=== PATIENT | female | born 2000 | race African-American/Black ===

== ENCOUNTER 2019-06-03 21:32 | Emergency (ER) | payer SELFPAY ==
--- OUTSIDE RECORDS SUMMARY | 2019-06-03 21:35 | XMS REPORT ---
:2000 [facility] Address [address] [place] [address] Dr. Beck [address] [place] [address] Care Team Providers Name Role Phone Unavailable Unavailable Unavailable Problems This patient has no known problems. Allergies, Adverse Reactions, Alerts This patient has no known allergies or adverse reactions. Medications This patient has no known medications.
--- OUTSIDE RECORDS SUMMARY | 2019-06-03 21:35 | XMS REPORT | Summary of Care ---
:2000 Author Organization [facility] - Health Address [address] [place] [id number] Care Team Providers Name Role Phone Christina Cam Primary Care Provider Reason for Referral Radiology Services (STAT) Status Reason Specialty Diagnoses / Referred By Referred To Procedures Contact Contact New Request Diagnostic Diagnoses Lower abdominal pain Gold, Priti Radiology Procedures XR KUB R, EMNP [address] [address] Radiology Services (STAT) Status Reason Specialty Diagnoses / Referred By Referred To Procedures Contact Contact New Request Diagnostic Diagnoses Lower abdominal pain Gold, Priti Radiology Procedures XR KUB R, EMNP [address] [address] Reason for Visit Reason Comments Abdominal Pain Sore Throat Auth/Cert Status Reason Specialty Diagnoses / Referred By Referred To Procedures Contact Contact [facility] [address] [place] [address] [place] [address] Encounter Details Date Type Department Care Team Description 06/03/2019 Emergency [facility]-Emergency Gold, Priti R, Lower abdominal pain Department EMNP (Primary Dx) [address] [place] [address] [address] [place] [address] [id number] [place] [address] Allergies No Known Allergiesdocumented as of this encounter (statuses as of 06/03/2019) Medications Medication Sig Dispensed Refills Start Date End Date Status dicyclomine 10 mg Take 1 capsule 20 capsule 0 06/03/2019 Active capsuleIndications: by mouth 4 Lower abdominal pain (four) times daily. ondansetron (ZOFRAN Take 1 tablet by 20 tablet 0 06/03/2019 Active ODT) 4 mg mouth every 8 disintegrating (eight) hours as tabletIndications: needed for Lower abdominal pain Nausea and Vomiting (N/V). documented as of this encounter (statuses as of 06/03/2019) Active Problems No known active problemsdocumented as of this encounter (statuses as of 2018) Social History Tobacco Use Types Packs/Day Years Used Date Never Assessed Sex Assigned at Date Recorded Not on file Job Start Date Occupation Industry Not on file Not on file Not on file Travel History Travel Start Travel End No recent travel history available. documented as of this encounter Last Filed Vital Signs Vital Sign Reading Time Taken Comments Blood Pressure 109/81 06/03/2019 1:00 PM CDT Pulse 61 06/03/2019 1:00 PM CDT Temperature 36.6 C (97.9 F) 06/03/2019 10:46 AM CDT Respiratory Rate 16 06/03/2019 1:00 PM CDT Oxygen Saturation 100% 06/03/2019 1:00 PM CDT Inhaled Oxygen Concentration - - Weight 48.5 kg (107 lb) 06/03/2019 10:46 AM CDT Height - - Body Mass Index - - documented in this encounter Discharge Instructions Priti Coppola EMNP - 06/03/2019NO LIFE-THREATENING FINDINGS ON TODAY'S EXAM. SPECIAL INSTRUCTIONS: 1. Avoid spicy foods for 5-7 days. 2. If you resume spicy foods and have abd pain, recommend following up with buttermaker helper 3. Recommend taking pepcid twice daily for 3-5 days 4. See attached information 5. Take medicines as prescribed FOLLOW-UP RECOMMENDATIONS: RECOMMEND FOLLOW-UP WITH A PRIMARY CARE PROVIDER OR SPECIALIST IN 2-5 DAYS, ESPECIALLY IF NO IMPROVEMENT IN SYMPTOMS. TO FOLLOW-UP WITHIN THE [facility], TRY THESE OPTIONS (CLINIC APPOINTMENTS AVAILABLE ON [id number] BASIS): 1. SCHEDULE AN APPOINTMENT ONLINE AT WWW.[facility] 2. OR CALL THE [facility] AT OR 3. OR CALL YOUR [facility] PHYSICIAN'S OFFICE DIRECTLY IF YOU ARE ALREADY AN ESTABLISHED [facility] PATIENT. OR, YOU MAY FOLLOW-UP WITH A PROVIDER OF YOUR CHOICE, SUCH : 1. A PHYSICIAN OF YOUR CHOICE 2. [facility], . LOCATIONS IN [facility] 3. [facility], [address] [place], [place]; [phone] RETURN TO ER FOR WORSENING OF SYMPTOMS. AttachmentsThe following attachments cannot be sent through Care Everywhere.Abdominal Pain, Adult (Sudanese)Abdominal Pain, Unknown Cause, (Female ) (Sudanese)Dicyclomine tablets or capsules (Sudanese)Ondansetron oral dissolving tablet (Sudanese)documented in this encounter Plan of Treatment Health Maintenance Due Date Last Done Comments MENINGOCOCCAL B VACCINES (1 of 2 - 2009 Risk Bexsero 2-dose series) VARICELLA VACCINES (1 of 2 - 13+ 2012 2-dose series) HPV VACCINES (1 - Female 3-dose 2014 series) CHLAMYDIA SCREENING 2015 DTaP,Tdap,and Td Vaccines (1 - 2018 Tdap) INFLUENZA VACCINE 06/30/2019 MENINGOCOCCAL VACCINE Aged Out No longer eligible based on patient's age to complete this topic PNEUMOCOCCAL 0-64 YEARS COMBINED Aged Out No longer eligible based on SERIES patient's age to complete this topic documented as of this encounter Procedures Procedure Name Priority Date/Time Associated Comments Diagnosis XR KUB STAT 06/03/2019 12:23 Lower abdominal Results for this PM CDT pain procedure are in the results section. CBC WITH DIFFERENTIAL STAT 06/03/2019 11:09 Lower abdominal Results for this AM CDT pain procedure are in the results section. CBC WITH DIFF STAT 06/03/2019 11:09 Lower abdominal Results for this AM CDT pain procedure are in the results section. COMP. METABOLIC PANEL STAT 06/03/2019 11:09 Lower abdominal Results for this (69604) AM CDT pain procedure are in the results section. LIPASE STAT 06/03/2019 11:09 Lower abdominal Results for this AM CDT pain procedure are in the results section. POCT TEST ALMITA 06/03/2019 10:51 Lower abdominal Results for this AM CDT pain procedure are in the results section. URINALYSIS STAT 06/03/2019 10:51 Lower abdominal Results for this AM CDT pain procedure are in the results section. NOTICE OF PRIVACY Routine 06/03/2019 10:36 PRACTICES AM CDT CONSENT/REFUSAL FOR Routine 06/03/2019 10:36 DIAGNOSIS AND AM CDT TREATMENT documented in this encounter Results XR KUB (06/03/2019 12:23 PM CDT) Specimen Impressions Performed At No definite radiographic abnormality PACS/VR/DOSE Narrative Performed At * * * * * * * * ORIGINAL REPORT * * * * * * * * PACS/VR/DOSE EXAM: KUB HISTORY: abd pain; TECHNIQUE:A KUB radiograph is obtained. COMPARISON: 2014 FINDINGS:The bowel gas pattern is nonobstructive. No radiopaque calculi or organomegaly is seen. No suspicious bony abnormality is noted. A tubular structure is seen superimposed over the midabdomen. Procedure Note [facility], Radiant Results Inft User - 06/03/2019 12:28 PM CDT * * * * * * * * ORIGINAL REPORT * * * * * * * * EXAM: KUB HISTORY: abd pain; TECHNIQUE:A KUB radiograph is obtained. COMPARISON: 2014 FINDINGS:The bowel gas pattern is nonobstructive. No radiopaque calculi or organomegaly is seen. No suspicious bony abnormality is noted. A tubular structure is seen superimposed over the midabdomen. IMPRESSION No definite radiographic abnormality Performing Organization Address City/State/Zipcode Phone Number PACS/VR/DOSE CBC WITH DIFFERENTIAL (06/03/2019 11:09 AM CDT) WBC 5.56 4.30 - 11.10 [facility] 10*3/L [facility] RBC 5.38 (H) 3.93 - 5.25 [facility] 10*6/L [facility] HGB 12.1 11.6 - 15.0 [facility] g/dL [facility] HCT 38.9 35.7 - 45.2 % [facility] MCV 72.3 (L) 80.6 - 95.5 fL [facility] MCH 22.5 (L) 25.9 - 32.8 pg [facility] MCHC 31.1 (L) 31.6 - 35.1 [facility] g/dL [facility] RDW-SD 38.0 (L) 39.0 - 49.9 fL [facility] RDW-CV 14.6 12.0 - 15.5 % [facility] PLT 273 166 - 358 [facility] 10*3/L [facility] MPV 9.0 (L) 9.5 - 12.9 fL [facility] NRBC/100 WBC 0.0 0.0 - 10.0 /100 [facility] WBCs [facility] NRBC x10^3 <0.01 10*3/L [facility] GRAN MAT (NEUT) % 48.4 % [facility] IMM GRAN % 0.00 % [facility] LYMPH % 31.5 % [facility] MONO % 16.5 % [facility] EOS % 3.2 % [facility] BASO % 0.4 % [facility] GRAN MAT x10^3(ANC) 2.69 1.88 - 7.09 [facility] 10*3/uL [facility] IMM GRAN x10^3 <0.03 0.00 - 0.06 [facility] 10*3/uL [facility] LYMPH x10^3 1.75 1.32 - 3.29 [facility] 10*3/uL [facility] MONO x10^3 0.92 0.33 - 0.92 [facility] 10*3/uL [facility]ITAL [facility] EOS x10^3 0.18 0.03 - 0.39 [facility] 10*3/uL [facility] BASO x10^3 <0.03 0.01 - 0.07 [facility] 10*3/uL [facility] Specimen Blood - ARM, RIGHT Performing Organization Address [facility]ode Phone Number [facility] CLIA: [id number], [address] [place] [address] LIPASE (06/03/2019 11:09 AM CDT) LIPASE 54 0 - 220 U/L [facility] Specimen Blood - ARM, RIGHT Performing Organization Address City/[facility] Cent[facility]ode Phone Number [facility] CLIA: [id number], [address] [place] [address] COMP. METABOLIC PANEL (28006) (06/03/2019 11:09 AM CDT) NA 143 135 - 145 mmol/L [facility] K 3.6 3.5 - 5.0 mmol/L [facility] CL 107 98 - 108 mmol/L [facility] CO2 TOTAL 28 23 - 31 mmol/L [facility] AGAP 8 2 - 16 [facility] BUN 8 7 - 23 mg/dL [facility] GLUCOSE 90 70 - 110 mg/dL [facility] CREATININE 0.62 0.50 - 1.04 [facility] mg/dL [facility]PITAL [facility] TOTAL BILI 0.2 0.1 - 1.1 mg/dL [facility] CALCIUM 9.5 8.6 - 10.6 mg/dL [facility] T PROTEIN 7.6 6.3 - 8.2 g/dL [facility] ALBUMIN 4.4 3.5 - 5.0 g/dL [facility] ALK PHOS 75 34 - 122 U/L [facility] ALT(SGPT) 21 9 - 51 U/L [facility] AST(SGOT) 26 13 - 40 U/L [facility] eGFR Calculation 124.0 mL/min/1.73m2 [facility] (Non-) [facility] eGFR Calculation 150.3 mL/min/1.73m2 [facility] () [facility] Specimen Blood - ARM, RIGHT Narrative Performed At Association of Glomerular Filtration Rate (GFR) [facility] and Staging of Kidney Disease* + + +- + | GFR (mL/min/1.73 m2)| With Kidney Damage|Without Kidney Damage + + +- + |>90| Stage one| Normal + + +- + |60-89|S tage two| Decreased GFR + + +- + |30-59|S tage three| Stage three + + +- + |15-29|S tage four | Stage four + + +- + |<15 (or dialysis)|Stage five | Stage five + + +- + *Each stage assumes the associated GFR level has been in effect for at least three months.Stages 1 to 5, with or without kidney disease, indicate chronic kidney disease. Notes: Determination of stages one and two (with eGFR >59mL/min/1.73 m2) requires estimation of kidney damage for at least three months as defined by structural or functional abnormalities of the kidney, manifested by either: Pathological abnormalities or Markers of kidney damage (including abnormalities in the composition of the blood or urine or abnormalities in imaging tests). Performing Organization Address [facility] Centercode Phone Number [facility] CLIA: [id number], [address] [place] [address] POCT TEST (06/03/2019 10:51 AM CDT) POCT PREG negative On board controls acceptable present with C Line POCT PREG LOT # [id number] POCT PREG TEST DATE 10/29/2020 Specimen Urine - URINE, CLEAN CATCH URINALYSIS (06/03/2019 10:51 AM CDT) APPEARANCE Clear Clear [facility] COLOR Pale Yellow (A) Yellow [facility] PH 7.5 4.8 - 8.0 [facility] SP GRAVITY 1.010 1.003 - 1.030 [facility] GLU U QUAL Negative Negative [facility] BLOOD Negative Negative [facility] KETONES Negative Negative [facility] PROTEIN Negative Negative [facility] UROBILIN 0.2 mg/dL 0-1.0 mg/dL [facility] BILIRUBIN Negative Negative [facility] NITRITE Negative Negative [facility] LEUK ELAINE Negative Negative [facility] RBC/HPF 0 0 - 3 HPF [facility] WBC/HPF 1 0 - 5 HPF [facility] BACTERIA Few (A) Negative [facility] SQ EPITH 2 HPF [facility] Specimen Urine - URINE, CLEAN CATCH Performing Organization Address City/[facility]/Zipcode Phone Number [facility] CLIA: [id number], [address] [place] [address] documented in this encounter Visit Diagnoses Diagnosis Lower abdominal pain - Primary Abdominal pain, other specified site documented in this encounter Administered Medications Medication Order MAR Action Action Date Dose Rate Site acetaminophen (TYLENOL) tablet Given 06/03/2019 12:24 PM CDT 650 mg 650 mg 650 mg, Oral, ONCE, 1 dose, 06/03/19 at 1330, ALMITA ketorolac (TORADOL) injection 15 mg Given 06/03/2019 11:46 AM CDT 15 mg 15 mg, Slow IV Push, ONCE, 1 dose, Mon06/03/19 at 1245, Routine, cannon 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
[2019-06-03 23:33] LABS: Absolute Lymphocytes (CBC) 0.8 K/uL (0.7-4.9); Basophils % 0.1 % (0-1.3); Hematocrit 36.4 % (36.0-45.0); Lymphocytes % 10.7 % (15.3-44.8); MPV 7.2 fL (7.6-11.3); RBC Red Blood Cell Count 5.15 M/uL (3.86-4.86)
[2019-06-03] MEDS ORDERED: ONDANSETRON 4 MG/2 ML VIAL ONE (23:45)
[2019-06-03] MEDS ORDERED: FAMOTIDINE 20 MG/2 ML VIAL IV ONE (23:45)
[2019-06-03 23:50] LABS: ALT/SGPT 22 U/L (12-78); AST/SGOT 18 U/L (15-37); Albumin 3.8 g/dL (3.4-5.0); Alkaline Phosphatase 72 U/L (45-117); BUN Blood Urea Nitrogen 6 mg/dL (7-18); Bicarbonate 28 mmol/L (21-32); Bilirubin Direct < 0.1 mg/dL (0-0.2); Bilirubin Total 0.3 mg/dL (0.2-1.0); Glucose Level 94 mg/dL (74-106); Lipase 60 U/L (73-393); Potassium 3.7 mmol/L (3.5-5.1); Protein, Total 7.4 g/dL (6.4-8.2); Sodium Level 141 mmol/L (136-145)
[2019-06-03] MEDS ORDERED: KETOROLAC 30 MG/ML INJ ONE (23:53)
[2019-06-03] MEDS ORDERED: PROMETHAZINE 25 MG/ML VIAL ONE (23:58)
[2019-06-04 00:46] LABS: Urine Blood NEGATIVE (NEG); Urine Glucose NEGATIVE (NEG); Urine Protein 1+ (NEG); Urine pH 8.5 (5.0-7.0)
--- NOTE | 2019-06-04 01:23 | EDPHYS ---
Physician Documentation [facility] Name: Tanvi Morris Age: 18 yrs Sex: Female : 2000 Arrival Date: 06/03/2019 Time: 21:36 Bed Treatment Private MD: ED Physician Norbert Daley HPI: 06/04 00:42 This 18 yrs old Unknown Female presents to ER via Ambulatory with complaints of kb Abdominal Pain, Vomiting. 00:42 The patient presents with abdominal pain in the upper abdomen. Onset: The kb symptoms/episode began/occurred last night. The symptoms do not radiate. Associated signs and symptoms: Pertinent positives: nausea and vomiting. The symptoms are described as constant. Modifying factors: The symptoms are alleviated by nothing, the symptoms are aggravated by nothing. Severity of pain: At its worst the pain was moderate in the emergency department the pain is unchanged. The patient has not experienced similar symptoms in the past. The patient has been recently seen by a physician: the ER physician, out of Town. Pt reports upper abd pain, nausea and vomiting that started last night. Was seen at [place] and given bentyl, but she just vomits it up. . 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 - Social history:: Smoking status: Patient/guardian denies using tobacco. - Ebola Screening: : No symptoms or risks identified at this time. ROS: 06/04 00:41 Constitutional: Negative for fever, chills, and weight loss, ENT: Negative for injury, kb pain, and discharge, Neck: Negative for injury, pain, and swelling, Cardiovascular: Negative for chest pain, palpitations, and edema, Respiratory: Negative for shortness of breath, cough, wheezing, and pleuritic chest pain, Back: Negative for injury and pain, : Negative for injury, bleeding, discharge, and swelling, MS/Extremity: Negative for injury and deformity, Skin: Negative for injury, rash, and discoloration, Neuro: Negative for headache, weakness, numbness, tingling, and seizure. Abdomen/GI: Positive for abdominal pain, nausea and vomiting, Negative for diarrhea, constipation, abdominal cramps, abdominal distension, anorexia. Exam: 00:41 Constitutional: This is a well developed, well nourished patient who is awake, alert, kb and in no acute distress. Head/Face: Normocephalic, atraumatic. Eyes: Pupils equal round and reactive to light, extra-ocular motions intact. Lids and lashes normal. Conjunctiva and sclera are non-icteric and not injected. Cornea within normal limits. Periorbital areas with no swelling, redness, or edema. ENT: Nares patent. No nasal discharge, no septal abnormalities noted. Tympanic membranes are normal and external auditory canals are clear. Oropharynx with no redness, swelling, or masses, exudates, or evidence of obstruction, uvula midline. Mucous membranes moist. Neck: Trachea midline, no thyromegaly or masses palpated, and no cervical lymphadenopathy. Supple, full range of motion without nuchal rigidity, or vertebral point tenderness. No Meningismus. Chest/axilla: Normal chest wall appearance and motion. Nontender with no deformity. No lesions are appreciated. Cardiovascular: Regular rate and rhythm with a normal S1 and S2. No gallops, murmurs, or rubs. Normal PMI, no JVD. No pulse deficits. Respiratory: Lungs have equal breath sounds bilaterally, clear to auscultation and percussion. No rales, rhonchi or wheezes noted. No increased work of breathing, no retractions or nasal flaring. Back: No spinal tenderness. No costovertebral tenderness. Full range of motion. Skin: Warm, dry with normal turgor. Normal color with no rashes, no lesions, and no evidence of cellulitis. MS/ Extremity: Pulses equal, no cyanosis. Neurovascular intact. Full, normal range of motion. Neuro: Awake and alert, GCS 15, oriented to person, place, time, and situation. Cranial nerves II-XII grossly intact. Motor strength 5/5 in all extremities. Sensory grossly intact. Cerebellar exam normal. Normal gait. 00:41 Abdomen/GI: Inspection: abdomen appears normal, Bowel sounds: normal, in all quadrants, Palpation: soft, in all quadrants, mild abdominal tenderness, in the right upper quadrant and left upper quadrant. Vital Signs: 08/05 22:00 BP 134 / 91; Pulse 78; Resp 20; Temp 98.8; Pulse Ox 98% on R/A; Weight 52.16 kg (R); ak1 Height 5 ft. 4 in. (162.56 cm); Pain 10/10; 06/04 00:53 BP 109 / 65; Pulse 72; Resp 20; Temp 98.5(O); Pulse Ox 100% on R/A; mw2 01:36 BP 94 / 53; Pulse 73; Resp 18; Temp 98.5(O); Pulse Ox 100% on R/A; mw2 06/03 22:00 Body Mass Index 19.74 (52.16 kg, 162.56 cm) ak1 MDM: 06/03 22:14 Patient medically screened. kb 06/04 00:41 Data reviewed: vital signs, nurses notes. Data interpreted: Pulse oximetry: on room air kb is 98 %. Interpretation: normal. 01:22 Counseling: I had a detailed discussion with the patient and/or guardian regarding: the kb historical points, exam findings, and any diagnostic results supporting the discharge/admit diagnosis, lab results, the need for outpatient follow up, a family practitioner, a mill machinist, to return to the emergency department if symptoms worsen or persist or if there are any questions or concerns that arise at home. 06/03 23:06 Order name: Basic Metabolic Panel; Complete Time: 23:55 kb 06/03 23:06 Order name: CBC with Diff; Complete Time: 23:35 kb 06/03 23:06 Order name: Hepatic Function; Complete Time: 23:55 kb 06/03 23:06 Order name: Lipase; Complete Time: 23:55 kb 06/04 00:08 Order name: Urine Dipstick--Ancillary (enter results); Complete Time: 00:46 ar5 06/04 00:08 Order name: Urine --Ancillary (enter results); Complete Time: 00:46 ar5 06/03 23:06 Order name: IV Saline Lock; Complete Time: 23:18 kb 06/03 23:06 Order name: Labs collected and sent; Complete Time: 23:18 kb 06/03 23:06 Order name: Urine Dipstick-Ancillary (obtain specimen); Complete Time: 00:03 kb 06/04 00:12 Order name: Travis Screen Profile; Complete Time: 01:20 kb Administered Medications: 06/03 23:55 Drug: TORadol - Ketorolac 15 mg Route: IVP; Site: left antecubital; bb 06/04 00:30 Follow up: Response: No adverse reaction; Pain is decreased bb 06/03 23:55 Drug: Pepcid 20 mg Route: IVP; Site: left antecubital; bb 06/04 00:30 Follow up: Response: No adverse reaction bb 06/03 23:55 Drug: Zofran 4 mg Route: IVP; Site: left antecubital; bb 06/04 00:30 Follow up: Response: No adverse reaction; No change in condition bb 06/03 23:56 Drug: Phenergan 12.5 mg Route: IVP; Site: left antecubital; bb 06/04 00:30 Follow up: Response: Marked relief of symptoms bb Disposition: 07:12 Co-signature as Attending Physician, Norbert Daley MD Available for consultation at ps1 all times. . Disposition: 06/04/19 01:23 Discharged to Home. Impression: Upper abdominal pain, unspecified, Nausea and vomiting. - Condition is Stable. - Discharge Instructions: Nausea and Vomiting, Adult, [id number], Abdominal Pain, Adult, [id number]. - Prescriptions for Zofran ODT 4 mg Oral tablet,disintegrating - place 1 tablet by TRANSLINGUAL route every 6 hours As needed; 20 tablet. - Medication Reconciliation Form, Thank You Letter, Antibiotic Education, Prescription Opioid Use, Work release form, Family Work Release form. - Follow up: Emergency Department; When: As needed; Reason: Worsening of condition. Follow up: Private Physician; When: 2 - 3 days; Reason: Recheck today's complaints, Continuance of care, Re-evaluation by your physician. Signatures: Dispatcher [employer] EDMS Kia Fernández FNP-C FNP-Ckb Ballard, Brenda RN RN bb Cynthia Concepcion RN RN ak1 Norbert Daley MD MD ps1 Corrections: (The following items were deleted from the chart) 01:39 01:23 06/04/2019 01:23 Discharged to Home. Impression: Upper abdominal pain, bb unspecified; Nausea and vomiting. Condition is Stable. Forms are Medication Reconciliation Form, Thank You Letter, Antibiotic Education, Prescription Opioid Use. Follow up: Emergency Department; When: As needed; Reason: Worsening of condition. Follow up: Private Physician; When: 2 - 3 days; Reason: Recheck today's complaints, Continuance of care, Re-evaluation by your physician. kb
--- NOTE | 2019-06-04 01:23 | ER ---
Nurse's Notes [facility] Name: Tanvi Morris Age: 18 yrs Sex: Female : 2000 Arrival Date: 06/03/2019 Time: 21:36 Bed Treatment Private MD: Diagnosis: Upper abdominal pain, unspecified;Nausea and vomiting Presentation: 06/03 21:58 Presenting complaint: Patient states: generalized abd pain started a midnight last ak1 night. pt seen at [facility] [[email or web address]] given Bentyl. pt continues to vomit and have increased pain. pt mother stated pt had xray of the abd, UPT, lab work and a pelvic exam at [facility] [[email or web address] Transition of care: patient was not received from another setting of care. Onset of symptoms is unknown. Risk Assessment: Do you want to hurt yourself or someone else? Patient reports no desire to harm self or others. Initial Sepsis Screen: Does the patient meet any 2 criteria? No. Patient's initial sepsis screen is negative. Does the patient have a suspected source of infection? No. Patient's initial sepsis screen is negative. Care prior to arrival: None. 21:58 Method Of Arrival: Ambulatory ak1 21:58 Acuity: ELPIDIO 3 ak1 Triage Assessment: 22:00 General: Appears uncomfortable, Behavior is crying. 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 - Social history:: Smoking status: Patient/guardian denies using tobacco. - Ebola Screening: : No symptoms or risks identified at this time. Screenin/06 00:06 Abuse screen: Denies threats or abuse. Nutritional screening: No deficits noted. bb Tuberculosis screening: No symptoms or risk factors identified. Fall Risk None identified. Assessment: 06/03 23:15 General: Appears uncomfortable, slender, Behavior is calm, cooperative. Pain: Complains bb of pain in abdomen Pain currently is 9 out of 10 on a pain scale. Neuro: Level of Consciousness is awake, alert, obeys commands, Oriented to person, place, time, situation. Cardiovascular: Heart tones S1 S2 present Capillary refill < 3 seconds Patient's skin is warm and dry. Respiratory: Airway is patent Respiratory effort is even, unlabored, Respiratory pattern is regular. GI: Abdomen is flat, Bowel sounds present X 4 quads. Abd is soft X 4 quads Abdomen is tender to palpation in periumbilical area Reports constipation, vomiting. Derm: Skin is dry, Skin is normal, Skin temperature is warm. Musculoskeletal: Circulation, motion, and sensation intact. 23:45 Reassessment: pt actively vomiting Allison Fernández RESIDENTIAL LEASING AGENT notified pt medicated see DEC. bb 06/04 00:30 Reassessment: Patient is alert, oriented x 3, equal unlabored respirations, skin bb warm/dry/pink. Patient states feeling better. 01:38 Reassessment: Patient and/or family updated on plan of care and expected duration. Pain bb level reassessed. pt and family verbalized understanding of and agrees to plan of care discharge instructions given pt ambulated with steady gait to exit accompanied by family. Vital Signs: 06/03 22:00 BP 134 / 91; Pulse 78; Resp 20; Temp 98.8; Pulse Ox 98% on R/A; Weight 52.16 kg (R); ak1 Height 5 ft. 4 in. (162.56 cm); Pain 10/10; 06/04 00:53 BP 109 / 65; Pulse 72; Resp 20; Temp 98.5(O); Pulse Ox 100% on R/A; mw2 01:36 BP 94 / 53; Pulse 73; Resp 18; Temp 98.5(O); Pulse Ox 100% on R/A; mw2 06/03 22:00 Body Mass Index 19.74 (52.16 kg, 162.56 cm) ak1 ED Course: 06/03 21:36 Patient arrived in ED. ag3 22:00 Triage completed. ak1 22:00 Arm band placed on Patient placed in waiting room, Patient notified of wait time. ak1 22:11 Kia Fernández FNP-C is PHCP. kb 22:11 Norbert Daley MD is Attending Physician. kb 23:17 Cassidy Hdz RN is Primary Nurse. bb 23:25 Inserted saline lock: 20 gauge in left antecubital area, using aseptic technique. Blood mw2 collected. 23:30 Patient has correct armband on for positive identification. Bed in low position. Call bb light in reach. Adult w/ patient. 06/04 01:39 No provider procedures requiring assistance completed. IV discontinued, intact, bb bleeding controlled, No redness/swelling at site. Pressure dressing applied. Administered Medications: 06/03 23:55 Drug: TORadol - Ketorolac 15 mg Route: IVP; Site: left antecubital; bb 06/04 00:30 Follow up: Response: No adverse reaction; Pain is decreased bb 06/03 23:55 Drug: Pepcid 20 mg Route: IVP; Site: left antecubital; bb 06/04 00:30 Follow up: Response: No adverse reaction bb 06/03 23:55 Drug: Zofran 4 mg Route: IVP; Site: left antecubital; bb 06/04 00:30 Follow up: Response: No adverse reaction; No change in condition bb 06/03 23:56 Drug: Phenergan 12.5 mg Route: IVP; Site: left antecubital; bb 06/04 00:30 Follow up: Response: Marked relief of symptoms bb Outcome: 01:23 Discharge ordered by . kb 01:39 Discharged to home ambulatory, with family. bb 01:39 Condition: stable 01:39 Discharge instructions given to patient, family, Instructed on discharge instructions, follow up and referral plans. medication usage, Demonstrated understanding of instructions, follow-up care, medications, Prescriptions given X 1. 01:39 Patient left the ED. bb Signatures: Kia Fernández, MARAL MÉNDEZ-Cassidy Erwin RN RN bb Cynthia Concepcion RN RN ak1 Mona Collier mw2 Cassie Martin ag3
== END 2019-06-04 01:39 | disposition home or self-care (01) ==
LOC: ER 21:32
DX: R10.10 Upper abdominal pain, unspecified (principal); R11.2 Nausea with vomiting, unspecified
CPT/HCPCS: 36415; 80048; 80076; 81003; 81025; 83690; 85025; 86308; 96374; 96375; 99284; J2405; J2550

== ENCOUNTER 2021-08-08 18:33 | Emergency (ER) | payer SELFPAY ==
--- NOTE | 2021-08-08 19:35 | EDPHYS ---
Physician Documentation [facility] Name: Paty Morris Age: 20 yrs Sex: Female : 2000 Arrival Date: 08/08/2021 Time: 18:36 Bed 18 Private MD: ED Physician Gonzales Monahan HPI: 08/08 19:29 This 20 yrs old Black Female presents to ER via Ambulatory with complaints of Tongue cp Problem. 19:29 The patient presents with pain. The problem is located in the tongue. cp 19:29 Onset: The symptoms/episode began/occurred 2 day(s) ago. cp 19:29 Duration: The symptoms are continuous, and are unchanged since they started. Associated cp signs and symptoms: Pertinent positives: pain, Pertinent negatives: dysphagia, fever, inability to eat, sore throat. Severity of symptoms: in the emergency department the symptoms are unchanged, despite home interventions. 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 - Social history:: Smoking status: Patient denies any tobacco usage or history of. ROS: 19:30 ENT: Positive for tongue pain. cp 19:30 Constitutional: Negative for fever, poor PO intake. cp 19:30 Respiratory: Negative for cough, shortness of breath, wheezing. 19:30 Abdomen/GI: Negative for abdominal pain, nausea, vomiting, and diarrhea. 19:30 Skin: Negative for rash. 19:30 All other systems are negative. Exam: 19:33 Constitutional: The patient appears in no acute distress, alert, awake, non-toxic, well cp developed, well nourished. 19:33 Head/Face: Normocephalic, atraumatic. cp 19:33 ENT: External ear(s): are unremarkable, Nose: is normal, Mouth: Lips: moist, Oral mucosa: pink and intact, moist, Tongue: displays stomatitis, no swelling, no erythema noted, Posterior pharynx: Airway: no evidence of obstruction, patent, Tonsils: are normal in appearance, Uvula: midline, erythema, is not appreciated, exudate, is not appreciated. 19:33 Neck: ROM/movement: is normal, is supple, without pain, no range of motions limitations, Lymph nodes: no appreciated lymphadenopathy. 19:33 Cardiovascular: Rate: normal. 19:33 Respiratory: the patient does not display signs of respiratory distress, Respirations: normal. 19:33 Skin: no rash present. Vital Signs: 18:51 BP 126 / 87; Pulse 78; Resp 14; Temp 98.6; Pulse Ox 100% ; Weight 47.63 kg; Height 5 vg1 ft. 5 in. (165.10 cm); Pain 4/10; 18:51 Body Mass Index 17.47 (47.63 kg, 165.10 cm) vg1 MDM: 19:14 Patient medically screened. [facility] 19:30 Differential diagnosis: aphthous ulcers, acute necrotizing ulcerative gingivitis, cp gingivostomatitis. 19:35 Data reviewed: vital signs, nurses notes. 19:35 Counseling: I had a detailed discussion with the patient and/or guardian regarding: the cp historical points, exam findings, and any diagnostic results supporting the discharge/admit diagnosis, to return to the emergency department if symptoms worsen or persist or if there are any questions or concerns that arise at home. Administered Medications: No medications were administered Disposition: 19:40 Chart complete. 08/09 07:02 Co-signature as Attending Physician, Gonzales Monahan MD I agree with the assessment and main [facility] plan of care. Disposition Summary: 08/08/21 19:35 Discharge Ordered Location: Home cp Problem: new cp Symptoms: are unchanged cp Condition: Stable cp Diagnosis - Other forms of stomatitis - oral cp Followup: cp - With: Private Physician - When: 2 - 3 days - Reason: Worsening of condition Discharge Instructions: - Discharge Summary Sheet cp - Stomatitis cp Forms: - Medication Reconciliation Form cp - Thank You Letter cp - Antibiotic Education cp - Prescription Opioid Use cp Prescriptions: - Lidocaine Viscous - take 5 milliliter by ORAL route every 4-6 hours As needed; 1 bottle; Refills: cp 0, Product Selection Permitted Signatures: Gonzales Monahan MD MD cha Page, Corey, PA PA cp Garcia, Victoria, RN RN vg1
--- NOTE | 2021-08-08 19:35 | ER ---
Nurse's Notes [facility] Name: Paty Morris Age: 20 yrs Sex: Female : 2000 Arrival Date: 08/08/2021 Time: 18:36 Bed 18 Private MD: Diagnosis: Other forms of stomatitis-oral Presentation: 08/08 18:51 Chief complaint: Patient states: About two days ago pt states has a cut on tongue and vg1 its difficult to eat or drink anything. Pt is concerned that it might be infected. Coronavirus screen: Vaccine status: Patient reports being unvaccinated. Ebola Screen: Patient negative for fever greater than or equal to 101.5 degrees Fahrenheit, and additional compatible Ebola Virus Disease symptoms. Initial Sepsis Screen: Does the patient meet any 2 criteria? No. Patient's initial sepsis screen is negative. Does the patient have a suspected source of infection? No. Patient's initial sepsis screen is negative. Risk Assessment: Do you want to hurt yourself or someone else? Patient reports no desire to harm self or others. Onset of symptoms was August 06, 2021. 18:51 Method Of Arrival: Ambulatory vg1 18:51 Acuity: ELPIDIO 4 vg1 Triage Assessment: 18:56 General: Appears in no apparent distress. comfortable, Behavior is calm, cooperative. vg1 Pain: Complains of pain in tongue. 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 - Social history:: Smoking status: Patient denies any tobacco usage or history of. Screenin:10 Abuse screen: Denies threats or abuse. Denies injuries from another. Nutritional dc2 screening: No deficits noted. Nutritional screening: No deficits noted. Tuberculosis screening: No symptoms or risk factors identified. Never had TB. Fall Risk None identified. No fall in past 12 months (0 pts). Assessment: 19:10 General: Appears in no apparent distress. comfortable, slender, well groomed, well dc2 developed, Behavior is calm, cooperative. Pain: Denies pain. Neuro: No deficits noted. Neuro: No deficits noted. Respiratory: No deficits noted. GI: No signs and/or symptoms were reported involving the gastrointestinal system. EENT: tiny superficial canker sore in middle of tongue. Denies pain at this time. . Derm: No deficits noted. Vital Signs: 18:51 BP 126 / 87; Pulse 78; Resp 14; Temp 98.6; Pulse Ox 100% ; Weight 47.63 kg; Height 5 vg1 ft. 5 in. (165.10 cm); Pain 4/10; 18:51 Body Mass Index 17.47 (47.63 kg, 165.10 cm) vg1 ED Course: 18:36 Patient arrived in ED. mr 18:56 Triage completed. vg1 18:56 Arm band placed on. vg1 19:10 Patient has correct armband on for positive identification. Bed in low position. Call dc2 light in reach. Side rails up X 1. 19:14 Gonzales De Luna PA is PHCP. cp 19:14 Gonzales Monahan MD is Attending Physician. cp 19:40 No provider procedures requiring assistance completed. dc2 19:40 Patient did not have IV access during this emergency room visit. dc2 19:48 Marielos Doran, RN is Primary Nurse. dc2 Administered Medications: No medications were administered Outcome: 19:35 Discharge ordered by . cp 19:50 Discharged to home ambulatory. dc2 19:50 Condition: good 19:50 Discharge instructions given to patient, Instructed on discharge instructions, follow dc2 up and referral plans. Demonstrated understanding of instructions, medications. 19:57 Patient left the ED. dc2 Signatures: Yfn Bethany mr Gonzales De Luna PA PA Belinda Dinero, RN RN vg1 Marielos Doran RN RN dc2
[2021-08-08 20:05] VITALS: BP 126/87; TEMP 98.6; O2SAT 100
== END 2021-08-08 19:57 | disposition home or self-care (01) ==
LOC: ER 18:33
DX: K12.1 Other forms of stomatitis (principal)
CPT/HCPCS: 99281

== ENCOUNTER 2021-10-19 07:24 | Emergency (ER) | payer SELFPAY ==
--- OUTSIDE RECORDS SUMMARY | 2021-10-19 07:27 | XMS REPORT | Continuity of Care Document ---
:2000 Author Organization [facility] t Address [address] [place] [address] Care Team Providers Name Role Phone Doctor Unassigned, Name Attending Clinician Unavailable Pob1, Care Clinic Attending Clinician Unavailable Caridad Curran Attending Clinician Caridad MORAN Attending Clinician Unavailable Nurse, Nikolai Pob I Attending Clinician Unavailable Evette RUIZ R Attending Clinician GOLD, R Attending Clinician Unavailable GOLD, R Admitting Clinician Unavailable Payers Payer Name Policy Type Policy Number Effective Date Expiration Date S ource Problems Condition Condition Condition Status Onset Resolution Last Treating Co mments Source Name Details Category Date Date Treatment Clinician Date No known No known Disease Unive rs active active ity of problems problems [facility] Allergies, Adverse Reactions, Alerts Allergy Allergy Status Severity Reaction(s) Onset Inactive Treating Comm ents Source Name Type Date Date Clinician NO KNOWN Drug Active Univers ALLERGIE Class ity of S [facility] Social History Social Habit Start Date Stop Date Quantity Comments Source Sex Assigned At Uni versity [facility] Smoking Status Start Date Stop Date Source Never smoker [facility] Unknown if ever smoked [facility] y [facility] Medications Ordered Filled Start Stop Current Ordering Indication Dosage Frequency Signature Comments Components Source Medication Medication Date Date Medication? Clinician (SIG) Name Name ondansetron 2019- No 4mg 4 mg, Slow Univers (ZOFRAN 06-03 IV Push, ity of (PF)) 18:30: 17:24 ONCE, 1 [place] injection 4 00 :00 dose, Mon Med ical mg 06/03/19 at Branch 1330, ALMITA acetaminoph 2019- No 650mg 650 mg, U nivers en 06-03 Oral, ity of (TYLENOL) 18:30: 17:24 ONCE, 1 [place] tablet 650 [place] :00 dose, Mon Medi david mg 06/03/19 at Branch 1330, ALMITA ketorolac 2019- No 15mg 15 mg, Unive rs (TORADOL) 06-03 08-05 Slow IV ity of injection 17:45: 16:46 Push, [place] 15 mg 00 :00 ONCE, 1 Medical dose, [facility] 06/03/19 at 1245, Routine
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 06/03/19 at 1215, STAT dicyclomine 2018- Yes [id number] 10mg Take 1 Univers 10 mg 8-05 capsule by ity of capsule 00:00: mouth 4 00 (four) Medical times Branch daily. ondansetron 2019- Yes [id number] 4mg Take 1 Univers (ZOFRAN 8-05 tablet by ity of ODT) 4 mg 00:00: mouth [place] disintegrat 00 every 8 Medic al ing tablet (eight) Branch hours as needed for Nausea and Vomiting (N/V). dicyclomine 2019-0 Yes [id number] 10mg Take 1 Univers 10 mg 8-05 capsule by ity of capsule 00:00: mouth 4 00 (four) Medical times Branch daily. ondansetron 2019-0 Yes [id number] 4mg Take 1 Univers (ZOFRAN 8-05 tablet by ity of ODT) 4 mg 00:00: mouth [place] disintegrat 00 every 8 Medic al ing tablet (eight) Branch hours as needed for Nausea and Vomiting (N/V). dicyclomine 2019-0 2020- No [id number] 10mg Take 1 Univers 10 mg 8-05 03-25 capsule by ity of capsule 00:00: 00:00 mouth 4 [place] 00 :00 (four) Medical times Branch daily. ondansetron 2019-0 2020- No [id number] 4mg Take 1 Univers (ZOFRAN 8-05 03-25 tablet by ity of ODT) 4 mg 00:00: 00:00 mouth [place] disintegrat 00 :00 every 8 Medic al ing tablet (eight) Branch hours as needed for Nausea and Vomiting (N/V). No known No Univers medications ity [facility] Vital Signs Vital Name Observation Time Observation Value Comments Source Systolic blood 2020-01-22 22:05:00 120 mm[Hg] Univer sity of pressure [facility] Diastolic blood 2020-01-22 22:05:00 82 mm[Hg] Unive rsity of [facility] Heart rate 2020-01-22 22:05:00 99 /min [facility] Body temperature 2020-01-22 22:05:00 37.28 Zandra [facility] Respiratory rate 2020-01-22 22:05:00 16 /min [facility] Body height 2020-01-22 22:05:00 162.6 cm [facility] Body weight 2020-01-22 22:05:00 49.896 kg [facility] BMI 2020-01-22 22:05:00 18.88 kg/m2 [facility] Oxygen saturation in 2020-01-22 22:05:00 100 /min [place] of Arterial blood by [facility] Pulse oximetry Branch Systolic blood 2019-06-03 18:00:00 109 mm[facility]Hg] [facility] blood 2019-06-03 18:00:00 81 [facility]Hg[facility] 2019-06-03 18:00:00 61 /min [facility] Respiratory rate 2019-06-03 18:00:00 16 /min [facility] Oxygen saturation in 2019-06-03 18:00:00 100 /min [facility] Arterial blood by [facility] Pulse oximetry Branch Body temperature 2019-06-03 15:46:00 36.61 Zandra [facility] Body weight 2019-06-03 15:46:00 48.535 kg [facility] Procedures Procedure Date / Time Performing Clinician Source Performed POCT FLU A AND B 2020-01-22 22:40:00 Jaquelin Jain [facility] (MOLECULAR) [facility] XR KUB 2019-06-03 17:23:33 Priti Gold [facility] LIPASE 2019-06-03 16:09:00 Priti Gold [facility] COMP. METABOLIC PANEL 2019-06-03 16:09:00 Priti Gold [facility] ([id number]) [facility] CBC WITH DIFFERENTIAL 2019-06-03 16:09:00 Priti Gold [facility] URINALYSIS 2019-06-03 15:51:00 Mitch Enriquez [facility] POCT TEST 2019-06-03 15:51:00 Mitch Enriquez [facility] NOTICE OF PRIVACY 2019-06-03 15:36:44 Doctor Unassigned, No [facility] PRACTICES Name [facility] CONSENT/REFUSAL FOR 2019-06-03 15:36:25 Doctor Unassigned, No [facility] DIAGNOSIS AND TREATMENT Name [facility] Encounters Start End Encounter Admission Attending Care Care Encounter Source Date/Time Date/Time Type Type Clinicians Facility Department ID 2020-04-29 2020-04-29 Outpatient [facility] [id number] Univers 13:40:00 13:40:00 [id number] ity [facility] 2020-01-29 2020-01-29 Patient Doctor CRISTOBAL [id number] Univers 00:00:00 00:00:00 Secure Msg Unassigned, ANKITA [id number] ity of [place] [facility] [id number] [place] as [id number] [address] 2020-01-22 2020-01-22 Urgent Pob1, Acute Care Clinic [facility] [id number]. [id number] Univers 16:55:39 17:15:39 Kelsey Estrada [facility] [id number] ity of [place] [id number] [employer] as Professio [id number] [address] 2020-01-22 2020-01-22 Outpatient Paige MORAN [facility] [id number] Univers 17:00:00 17:00:00 KELSEY ryan [facility] 2020-01-22 2020-01-22 Telephone Nurse, Adc [facility] [id number] Univers 00:00:00 00:00:00 Fam Pob I Health [id number] ity of [place] [id number] [facility] [id number] Wy dical nal [address] 2019-06-05 2019-06-05 Emergency E MHBL MHBL [id number] MHBL 11:44:00 11:44:00 2019-06-03 2019-06-03 Emergency [facility] [id number] Univers 10:52:26 13:58:00 Priti R [place] [id number] i ty of [place] 4.2.7.2.686 [facility] [phone] [facility] [address] 2019-06-03 2019-06-03 Emergency X [facility] ERT [id number] Univers 10:52:26 13:58:00 PRITI [facility] Results Test Description Test Time Test Comments Results Result Comments Source POCT FLU A AND B (MOLECULAR) 2020-01-22 22:40:00 Test Item Value Reference Range Interpretation Comme nts POCT INFLUENZA A (test code = 3840) neg Negative - Negativ e POCT INFLUENZA B (test code = 3841) neg Negative - Negativ e Lab Interpretation (test code = 16595-5) Normal [id number] 17:26:27No definite radiographic abnormality * * * * * * * * ORIGINAL REPORT * * * * * * * *EXAM: KUB HISTORY: abd pain; TECHNIQUE:A KUB radiograph is obtained. COMPARISON: 2014 FINDINGS:The bowel gas pattern is nonobstructive. No radiopaque calculi ororganomegaly is seen. No suspicious bony abnormality is noted. A tubularstructure is seen superimposed over the midabdomen. [facility], Radiant Results Inft - 06/03/2019 12:28 PM CDT* * * * * * * * ORIGINAL REPORT * * * * * * * *EXAM: KUBHISTORY: abd pain;TECHNIQUE:A KUB radiograph is obtained.COMPARISON: 2014FINDINGS:The bowel gas pattern is nonobstructive. No radiopaque calculi ororganomegaly is seen. No suspicious bony abnormality is noted. A tubular structure is seen superimposed over the midabdomen.IMPRESSIONNo definite radiographic abnormalityUnUT [facility] [place] [facility]. METABOLIC PANEL ([id number])2019-06-03 16:31:00 Test Item Value Reference Range Interpretation Comments NA (test code = 143 mmol/L 135-145 8828461984) K (test code = 3.6 mmol/L 3.5-5 3070685502) CL (test code = 107 mmol/L 98-108 6298508176) CO2 TOTAL (test code = 28 mmol/L 23-31 4046656275) AGAP (test code = 2-16 4474325480) BUN (test code = 8 mg/dL 7-23 0389526805) GLUCOSE (test code = 90 mg/dL 70-110 2777847912) CREATININE (test code 0.62 mg/dL 0.5-1.04 = 0063275982) TOTAL BILI (test code 0.2 mg/dL 0.1-1.1 = 0291738294) CALCIUM (test code = 9.5 mg/dL 8.6-10.6 2634415292) T PROTEIN (test code = 7.6 g/dL 6.3-8.2 7143562246) ALBUMIN (test code = 4.4 g/dL 3.5-5 8702559682) ALK PHOS (test code = 75 U/L 34-122 5012132730) ALT(SGPT) (test code = 21 U/L 9-51 7821314223) AST(SGOT) (test code = 26 U/L 13-40 9289572619) eGFR Calculation mL/min/1.73m2 (Non-) (test code = 8582604072) eGFR Calculation mL/min/1.73m2 () (test code = 2578869221) FALGUNI (test code = FALGUNI) Association of Glomerular Filtration Rate (GFR) and Staging of Kidney Disease*+ ---------+ --------+ +| GFR (mL/min/1.73 m2)?| With Kidney Damage?|?Without Kidney Damage+ -------+ ------+ ---------+|?>90?|?Stage one?|? Normal?+ --------+ -------+ +|?60-89?|?St age two?|? Decreased GFR? + -+ + ---+|?30-59?|?Stage three?|? Stage three? + -+ + ---+|?15-29?|?Stage four? |? Stage four?+ ------+ -----+ --------+|?<15 (or dialysis)?|?Stage five? |? Stage five?+ ------+ -----+ --------+*Each stage assumes the associated GFR level has been in effect for at least three months.?Stages 1 to 5, with or without kidney disease, indicate chronic kidney disease.Notes: Determination of stages one and two (with eGFR >59mL/min/1.73 m2) requires estimation of kidney damage for at least three months as defined by structural or functional abnormalities of the kidney, manifested by either:Pathological abnormalities or Markers of kidney damage (including abnormalities in the composition of the blood or urine or abnormalities in imaging tests). [facility] 16:[facility]00 Test Item Value Reference Range Interpretation Comments LIPASE (test code = 0544344396) 54 U/L 0-220 Lab Interpretation (test code = Normal 52653-3) [facility] 16:29:00 Test Item Value Reference Range Interpretation Comments APPEARANCE (test code = Clear Clear 0114303095) COLOR (test code = Pale Yellow Yellow A 1021155148) PH (test code = 4.8-8.0 1739764256) SP GRAVITY (test code = 1.003-1.030 6639345819) GLU U QUAL (test code = Negative Negative 0610235904) BLOOD (test code = Negative Negative 4869037328) KETONES (test code = Negative Negative 2956567604) PROTEIN (test code = Negative Negative 2887-8) UROBILIN (test code = 0.2 mg/dL See_Comment [Auto mated 1511147014) message] The sy stem which generated this result transmitted reference range : 0-1.0 mg/dL. Th e reference range was not used to interpret this result as normal/abnormal . BILIRUBIN (test code = Negative Negative 8896363029) NITRITE (test code = Negative Negative 7476315457) LEUK ELAINE (test code = Negative Negative 4427988484) RBC/HPF (test code = See_Comment [Autom ated 9461495245) message] The sy stem which generated this result transmitted reference range : 0 - 3 HPF. The reference range was not used to interpret this result as normal/abnormal . WBC/HPF (test code = See_Comment [Autom ated 2524910282) message] The sy stem which generated this result transmitted reference range : 0 - 5 HPF. The reference range was not used to interpret this result as normal/abnormal . BACTERIA (test code = Few Negative A 2044462840) SQ EPITH (test code = HPF 9189510313) Lab Interpretation Abnormal (test code = 71408-4) [facility] WITH [id number] 16:18:00 Test Item Value Reference Range Interpretation Comments WBC (test code = See_Comment [Automated 6690-2) message] The sy stem which generated this result transmitted reference range : 4.30 - 11.10 10*3/?L. The reference range was not used to interpret this result as normal/abnormal . RBC (test code = See_Comment H [Automated 789-8) message] The sy stem which generated this result transmitted reference range : 3.93 - 5.25 10*6/?L. The reference range was not used to interpret this result as normal/abnormal . HGB (test code = 12.1 g/dL 11.6-15 718-7) HCT (test code = 38.9 % 35.7-45.2 4544-3) MCV (test code = 72.3 fL 80.6-95.5 L 787-2) MCH (test code = 22.5 pg 25.9-32.8 L 785-6) MCHC (test code = 31.1 g/dL 31.6-35.1 L 786-4) RDW-SD (test code = 38.0 fL 39-49.9 L 81851-1) RDW-CV (test code = 14.6 % 12-15.5 788-0) PLT (test code = See_Comment [Automated 777-3) message] The sy stem which generated this result transmitted reference range : 166 - 358 10*3/ ?L. The reference r yair was not used to interpret this result as normal/abnormal . MPV (test code = 9.0 fL 9.5-12.9 L 88256-8) NRBC/100 WBC (test See_Comment [Automat ed code = 4091835114) message] The system which generated this result transmitted reference range : 0.0 - 10.0 /100 WBCs. The refer ence range was not u sed to interpret th is result as normal/abnormal . NRBC x10^3 (test code <0.01 See_Comment [Auto mated = 7013686047) message] The s ystem which generated this result transmitted reference range : 10*3/?L. The reference range was not used to interpret this result as normal/abnormal . GRAN MAT (NEUT) % 48.4 % (test code = 770-8) IMM GRAN % (test code 0.00 % = 4782867751) LYMPH % (test code = 31.5 % 736-9) MONO % (test code = 16.5 % 5905-5) EOS % (test code = 3.2 % 713-8) BASO % (test code = 0.4 % 706-2) GRAN MAT x10^3(ANC) 2.69 10*3/uL 1.88-7.09 (test code = 4517814085) IMM GRAN x10^3 (test <0.03 0-0.06 code = 7841959484) LYMPH x10^3 (test code 1.75 10*3/uL 1.32-3.29 = 731-0) MONO x10^3 (test code 0.92 10*3/uL 0.33-0.92 = 742-7) EOS x10^3 (test code = 0.18 10*3/uL 0.03-0.39 711-2) BASO x10^3 (test code <0.03 0.01-0.07 = 704-7) Lab Interpretation Abnormal (test code = 49112-6) [id number] 15:51:00 Test Item Value Reference Range Interpretation Comments POCT PREG (test code = 1605) negative On board controls acceptable with present C Line (test code = 3574) POCT PREG LOT # (test code = 3575) [id number] POCT PREG TEST DATE (test 10/29/2020 code = 3576) Lab Interpretation (test code = Normal 69346-4) [facility]"
[2021-10-19] MEDS ORDERED: ASPIRIN EC 81 MG TAB PO ONE (08:02)
[2021-10-19 08:25] LABS: Absolute Lymphocytes (CBC) 1.9 K/uL (0.7-4.9); Basophils % 0.4 % (0-1.3); Hematocrit 37.8 % (36.0-45.0); Lymphocytes % 40.8 % (15.3-44.8); MPV 6.7 fL (7.6-11.3); RBC Red Blood Cell Count 5.63 M/uL (3.86-4.86)
[2021-10-19 08:35] LABS: Urine Blood 1+ (Negative); Urine Glucose Negative (Negative); Urine Protein 2+ (Negative); Urine Specific Gravity >=1.030 (1.005-1.030); Urine pH 6.5 (5.0-7.0)
[2021-10-19 08:41] LABS: ALT/SGPT 21 U/L (12-78); AST/SGOT 15 U/L (15-37); Albumin 4.2 g/dL (3.4-5.0); Alkaline Phosphatase 79 U/L (45-117); BUN Blood Urea Nitrogen 12 mg/dL (7-18); Bicarbonate 21 mmol/L (21-32); Bilirubin Direct 0.2 mg/dL (0-0.2); Bilirubin Total 0.5 mg/dL (0.2-1.0); Glucose Level 89 mg/dL (74-106); Magnesium 2.2 mg/dL (1.8-2.4); Sodium Level 142 mmol/L (136-145); Troponin (Emerg Dept Use Only) < 0.02 ng/mL (0.0-0.045)
--- NOTE | 2021-10-19 09:22 | RAD REPORT ---
EXAM DESCRIPTION: CT - Chest For Pe Angio - 10/19/2021 9:08 am CLINICAL HISTORY: Chest pain COMPARISON: None. TECHNIQUE: Dynamically enhanced axial 3 mm thick images of the chest were obtained during administra tion of <100> mL Isovue 370 IV contrast. Coronal and oblique reconstruction images were generated and reviewed. Exam utilizes a protocol for optimal evaluation of pulmonary arterial tree. Maximum intensity projections 3D imaging was utilized All CT scans are performed using dose optimization technique as appropriate and may include automated exposure control or mA/KV adjustment according to patient size. FINDINGS: A pulmonary embolus is not seen. A thoracic aortic aneurysm is not noted. A pleural effusion is not seen. A pericardial effusion is not seen. A lung consolidation is not present. High-grade stenosis the celiac artery. IMPRESSION: Negative for a pulmonary embolism.
--- NOTE | 2021-10-19 09:22 | RAD REPORT ---
EXAM DESCRIPTION: [place] Single View10/19/2021 8:46 am CLINICAL HISTORY: Chest pain COMPARISON: none FINDINGS: The lungs appear clear of acute infiltrate. The heart is normal size IMPRESSION: No acute abnormalities displayed
[2021-10-19 09:42] LABS: Platelet Estimate ADEQ; White Blood Cell Scan OK (OK)
[2021-10-19 09:43] LABS: Blood Morphology Comment NOTED (NOT SEEN); Hypochromasia 1+
[2021-10-19 09:44] LABS: Urine Specific Gravity/Preg >1.030 (1.005-1.030)
--- NOTE | 2021-10-19 09:49 | RAD REPORT ---
EXAM DESCRIPTION: USExtrem Venous W Compress Bil10/19/2021 9:25 am CLINICAL HISTORY: Leg pain COMPARISON: none FINDINGS: The common femoral, superficial femoral, popliteal and posterior tibial veins bilaterally are compressible and demonstrate augmentation. Doppler demonstrates good flow. IMPRESSION: No evidence of deep venous thrombosis involving either lower extremity.
--- NOTE | 2021-10-19 10:09 | ER ---
Nurse's Notes [facility] Name: Paty Morris Age: 20 yrs Sex: Female : 2000 Arrival Date: 10/19/2021 Time: 07:26 Bed 6 Private MD: Diagnosis: Chest pain, unspecified Presentation: 10/19 07:34 Chief complaint: Patient states: Int. mid chest pain for 10 days. L breast pain for 1 ll1 day. No cough or fever. Coronavirus screen: Vaccine status: Patient reports being unvaccinated. Client denies travel out of the [place] in the last 14 days. At this time, the client does not indicate any symptoms associated with coronavirus-19. Ebola Screen: Patient denies travel to an Ebola-affected area in the 21 days before illness onset. Initial Sepsis Screen: Does the patient meet any 2 criteria? No. Patient's initial sepsis screen is negative. Does the patient have a suspected source of infection? No. Patient's initial sepsis screen is negative. Risk Assessment: Do you want to hurt yourself or someone else? Patient reports no desire to harm self or others. Onset of symptoms was October 09, 2021. 07:34 Method Of Arrival: Ambulatory ll1 07:34 Acuity: ELPIDIO 3 ll1 Triage Assessment: 08:38 General: Appears in no apparent distress. uncomfortable, Behavior is calm, cooperative. ll3 Pain: Complains of pain in chest and left breast and right breast. Historical: - Allergies: 07:35 No Known Allergies; ll1 - PMHx: 07:35 None; ll1 - PSHx: 07:35 None; ll1 - Immunization history:: Client reports having NOT received the Covid vaccine. - Social history:: Smoking status: Patient denies any tobacco usage or history of. - Family history:: not pertinent. Screenin:25 Abuse screen: Denies threats or abuse. Nutritional screening: No deficits noted. ll3 Tuberculosis screening: No symptoms or risk factors identified. Fall Risk IV access (20 points). Mental Status- Oriented to own ability (0 pts). Total Keith Fall Scale indicates No Risk (0-24 pts). Assessment: 07:34 General: See triage. ll3 07:34 Pain: Complains of pain in right breast and left breast Pain radiates to mid-sternal ll3 area. Pain: Pain began 2 weeks ago. Cardiovascular: Patient's skin is warm and dry. Rhythm is sinus rhythm. 08:30 Reassessment: Patient appears in no apparent distress at this time. No changes from ll3 previously documented assessment. Patient and/or family updated on plan of care and expected duration. Pain level reassessed. Patient is alert, oriented x 3, equal unlabored respirations, skin warm/dry/pink. 09:30 Reassessment: Patient appears in no apparent distress at this time. No changes from ll3 previously documented assessment. Patient and/or family updated on plan of care and expected duration. Pain level reassessed. Patient is alert, oriented x 3, equal unlabored respirations, skin warm/dry/pink. 10:33 Reassessment: Patient appears in no apparent distress at this time. No changes from ll3 previously documented assessment. Patient and/or family updated on plan of care and expected duration. Pain level reassessed. Patient is alert, oriented x 3, equal unlabored respirations, skin warm/dry/pink. Vital Signs: 07:34 BP 129 / 84; Pulse 84; Resp 16; Temp 98.5; Pulse Ox 100% on R/A; Weight 46.72 kg; ll1 Height 5 ft. 4 in. (162.56 cm); Pain 5/10; 08:30 BP 117 / 75; Pulse 65; Resp 23; Pulse Ox 100% ; ll3 09:30 BP 121 / 77; Pulse 69; Resp 17; Pulse Ox 100% on R/A; ll3 10:33 BP 108 / 77; Pulse 66; Resp 18; Pulse Ox 100% on R/A; ll3 07:34 Body Mass Index 17.68 (46.72 kg, 162.56 cm) ll1 ED Course: 07:26 Patient arrived in ED. rg4 07:30 Gonzales Monahan MD is Attending Physician. chandler 07:34 Arm band placed on Patient placed in an exam room, on a stretcher. ll1 07:35 Triage completed. ll1 07:35 EKG completed in triage. Results shown to . ll1 07:38 Issac Aguilar, FAIZA is Primary Nurse. ll3 08:15 Inserted saline lock: 22 gauge in right antecubital area, using aseptic technique. ll3 Blood collected. 08:15 Initial lab(s) drawn, by me, sent to lab. Urine collected: clean catch specimen, clear, ll3 EKG done, by ED staff, reviewed by Gonzales Monahan MD. Patient maintains SpO2 saturation greater than 95% on room air. 08:25 Patient has correct armband on for positive identification. Placed in gown. Bed in low ll3 position. Call light in reach. Side rails up X 1. grants assistant on. Pulse ox on. NIBP on. 08:46 XRAY Chest (1 view) In Process Unspecified. EDMS 09:08 CT Chest For PE Angio In Process Unspecified. EDMS 09:25 US Extremity Venous W Compression Caleb In Process Unspecified. EDMS 10:08 Eduard Ibarra MD is Referral Physician. chandler 10:23 No provider procedures requiring assistance completed. ll3 10:33 IV discontinued, intact, bleeding controlled, No redness/swelling at site. Pressure ll3 dressing applied. Administered Medications: 08:05 Drug: Aspirin Chewable Tablet 162 mg Route: PO; ll3 08:30 Follow up: Response: No adverse reaction ll3 Outcome: 10:08 Discharge ordered by . chandler 10:32 Discharged to home ambulatory. ll3 10:32 Condition: stable 10:32 Discharge instructions given to patient, Instructed on discharge instructions, follow up and referral plans. medication usage, Demonstrated understanding of instructions, follow-up care, medications, Prescriptions given X 2. 10:34 Patient left the ED. ll3 Signatures: Dispatcher [employer] Gonzales Grover MD MD cha Garcia, Rubi rg4 Lou Rader RN RN ll1 Issac Aguilar RN RN ll3
--- NOTE | 2021-10-19 10:09 | EDPHYS ---
Physician Documentation [facility] Name: Paty Morris Age: 20 yrs Sex: Female : 2000 Arrival Date: 10/19/2021 Time: 07:26 Bed 6 Private MD: ED Physician Gonzales Monahan HPI: 10/19 07:57 This 20 yrs old Black Female presents to ER via Ambulatory with complaints of Chest chandler Pain, Breast Pain. 07:57 The patient or guardian reports chest pain that is located primarily in the anterior chandler chest wall, left. The pain does not radiate. Associated signs and symptoms: The patient has no apparent associated signs or symptoms. The chest pain is described as sharp. Duration: The patient or guardian reports multiple episodes, that are intermittent. Modifying factors: The symptoms are alleviated by antacids, the symptoms are aggravated by activity, breathing, palpation of area. Severity of pain: At its worst the pain was mild in the emergency department the pain is unchanged. The patient has not experienced similar symptoms in the past. Historical: - Allergies: 07:35 No Known Allergies; ll1 - PMHx: 07:35 None; ll1 - PSHx: 07:35 None; ll1 - Immunization history:: Client reports having NOT received the Covid vaccine. - Social history:: Smoking status: Patient denies any tobacco usage or history of. - Family history:: not pertinent. ROS: 07:57 Constitutional: Negative for fever, chills, and weight loss, Eyes: Negative for injury, chandler pain, redness, and discharge, ENT: Negative for injury, pain, and discharge, Neck: Negative for injury, pain, and swelling, Respiratory: Negative for shortness of breath, cough, wheezing, and pleuritic chest pain, Abdomen/GI: Negative for abdominal pain, nausea, vomiting, diarrhea, and constipation, Back: Negative for injury and pain, : Negative for injury, bleeding, discharge, and swelling, MS/Extremity: Negative for injury and deformity, Skin: Negative for injury, rash, and discoloration, Neuro: Negative for headache, weakness, numbness, tingling, and seizure, Psych: Negative for depression, anxiety, suicide ideation, homicidal ideation, and hallucinations, Allergy/Immunology: Negative for hives, rash, and allergies, Endocrine: Negative for neck swelling, polydipsia, polyuria, polyphagia, and marked weight changes, Hematologic/Lymphatic: Negative for swollen nodes, abnormal bleeding, and unusual bruising. 07:57 Cardiovascular: Positive for chest pain. Exam: 07:57 Constitutional: This is a well developed, well nourished patient who is awake, alert, chandler and in no acute distress. Head/Face: Normocephalic, atraumatic. Eyes: Pupils equal round and reactive to light, extra-ocular motions intact. Lids and lashes normal. Conjunctiva and sclera are non-icteric and not injected. Cornea within normal limits. Periorbital areas with no swelling, redness, or edema. ENT: Nares patent. No nasal discharge, no septal abnormalities noted. Tympanic membranes are normal and external auditory canals are clear. Oropharynx with no redness, swelling, or masses, exudates, or evidence of obstruction, uvula midline. Mucous membranes moist. Neck: Trachea midline, no thyromegaly or masses palpated, and no cervical lymphadenopathy. Supple, full range of motion without nuchal rigidity, or vertebral point tenderness. No Meningismus. Chest/axilla: Normal chest wall appearance and motion. Nontender with no deformity. No lesions are appreciated. Cardiovascular: Regular rate and rhythm with a normal S1 and S2. No gallops, murmurs, or rubs. Normal PMI, no JVD. No pulse deficits. Respiratory: Lungs have equal breath sounds bilaterally, clear to auscultation and percussion. No rales, rhonchi or wheezes noted. No increased work of breathing, no retractions or nasal flaring. Abdomen/GI: Soft, non-tender, with normal bowel sounds. No distension or tympany. No guarding or rebound. No evidence of tenderness throughout. Back: No spinal tenderness. No costovertebral tenderness. Full range of motion. Skin: Warm, dry with normal turgor. Normal color with no rashes, no lesions, and no evidence of cellulitis. MS/ Extremity: Pulses equal, no cyanosis. Neurovascular intact. Full, normal range of motion. Neuro: Awake and alert, GCS 15, oriented to person, place, time, and situation. Cranial nerves II-XII grossly intact. Motor strength 5/5 in all extremities. Sensory grossly intact. Cerebellar exam normal. Normal gait. Psych: Awake, alert, with orientation to person, place and time. Behavior, mood, and affect are within normal limits. 07:57 Musculoskeletal/extremity: DVT Exam: No signs of deep vein thrombosis. no pain, no swelling, no tenderness, negative Homans' sign noted on exam, no appreciated bluish discoloration, no erythema, no increased warmth. 08:01 ECG was reviewed by the Attending Physician. [facility] Vital Signs: 07:34 BP 129 / 84; Pulse 84; Resp 16; Temp 98.5; Pulse Ox 100% on R/A; Weight 46.72 kg; ll1 Height 5 ft. 4 in. (162.56 cm); Pain 5/10; 08:30 BP 117 / 75; Pulse 65; Resp 23; Pulse Ox 100% ; ll3 09:30 BP 121 / 77; Pulse 69; Resp 17; Pulse Ox 100% on R/A; ll3 10:33 BP 108 / 77; Pulse 66; Resp 18; Pulse Ox 100% on R/A; ll3 07:34 Body Mass Index 17.68 (46.72 kg, 162.56 cm) ll1 MDM: 07:30 Patient medically screened. chandler 07:59 Differential diagnosis: Cholelithiasis esophagitis, mitral valve prolapse, chandler pericarditis, pleurisy, pulmonary embolus, stable angina, unstable angina. HEART Score: History: Slightly Suspicious (0), ECG: Normal (0), Age: < or = 45 years (0), Risk Factors: No Risk Factors Known (0), Troponin: < or = 1 x Normal Limit (0). The patient's deep vein thrombosis risk score was calculated as follows: Total Score: 0. This patient was found to be at low risk for a deep vein thrombosis by using the Well's assessment criteria. The patient's pulmonary embolism risk score was calculated as follows: Total Score: 0-2 points. This patient was found to be at low risk for a pulmonary embolism by using the Well's assessment criteria. DEDE Risk Score: TOTAL SCORE = 0. Data reviewed: vital signs, nurses notes, lab test result(s), EKG, radiologic studies, plain films. Data interpreted: lunchroom monitor: rate is 84 beats/min, rhythm is regular, Pulse oximetry: on room air is 100 %. Test interpretation: by ED physician or midlevel provider: ECG, plain radiologic studies. Counseling: I had a detailed discussion with the patient and/or guardian regarding: the historical points, exam findings, and any diagnostic results supporting the discharge/admit diagnosis, lab results, radiology results, the need for outpatient follow up, for definitive care, a formula weigher, a family practitioner. 10/19 07:57 Order name: Basic Metabolic Panel; Complete Time: 08:42 chandler 10/19 07:57 Order name: CBC with Diff; Complete Time: 10:[address] [facility] 10/19 07:57 Order name: LFT's; Complete Time: 08:[address] [facility] 10/19 07:57 Order name: Magnesium; Complete Time: 08:[address] [facility] 10/19 07:57 Order name: Troponin (emerg Dept Use Only); Complete Time: 08:[address] [facility] 10/19 07:57 Order name: D-Dimer; Complete Time: 08:[address] [facility] 10/19 07:46 Order name: EKG; Complete Time: 07:47 ll1 10/19 07:57 Order name: XRAY Chest (1 view); Complete Time: 09:[address] [facility] 10/19 08:35 Order name: Urine Dipstick-Ancillary; Complete Time: 08:42 EDMS 10/19 08:35 Order name: Urine --Ancillary (enter results); Complete Time: 10:08 bd 10/19 08:41 Order name: CBC Smear Scan; Complete Time: 10:08 EDMS 10/19 08:42 Order name: US Extremity Venous W Compression Caleb; Complete Time: 10:[address] [facility] 10/19 08:42 Order name: CT Chest For PE Angio; Complete Time: 09:[address] [facility] 10/19 07:46 Order name: EKG - Nurse/Tech; Complete Time: 07:46 ll1 10/19 07:57 Order name: Cardiac monitoring; Complete Time: 08:[address] [facility] 10/19 07:57 Order name: IV Saline Lock; Complete Time: 08:[address] [facility] 10/19 07:57 Order name: Labs collected and sent; Complete Time: 08:[address] [facility] 10/19 07:57 Order name: O2 Per Protocol; Complete Time: 08:[address] [facility] 10/19 07:57 Order name: O2 Sat Monitoring; Complete Time: 08:[address] [facility] 10/19 07:57 Order name: Urine Dipstick-Ancillary (obtain specimen); Complete Time: 08:[address] [facility] 10/19 07:57 Order name: Urine Test (obtain specimen); Complete Time: 08:35 chandler EC:01 Rate is 74 beats/min. Rhythm is regular. QRS [place] is Normal. MI interval is shortened chandler at 98 msec. QRS interval is normal. QT interval is normal. No Q waves. T waves are Normal. No ST changes noted. Clinical impression: NSR w/ Non-specific ST/T Changes and No evidence of ischemia. Interpreted by me. Reviewed by me. Administered Medications: 08:05 Drug: Aspirin Chewable Tablet 162 mg Route: PO; ll3 08:30 Follow up: Response: No adverse reaction ll3 Disposition Summary: 10/19/21 10:08 Discharge Ordered Location: Home chandler Problem: new chandler Symptoms: have improved chandler Condition: Stable chandler Diagnosis - Chest pain, unspecified chandler Followup: chandler - With: Private Physician - When: 2 - 3 days - Reason: Recheck today's complaints, Continuance of care, Re-evaluation by your physician Followup: chandler - With: - When: 2 - 3 days - Reason: Recheck today's complaints, Re-evaluation by your physician Discharge Instructions: - Discharge Summary Sheet chandler - Nonspecific Chest Pain, Adult chandler - Chest Wall Pain chandler - Chest Wall Pain, [id number] chandler - Nonspecific Chest Pain, Adult, [id number] chandler - Aspirin and Your Heart [facility] Forms: - Medication Reconciliation Form chandler - Thank You Letter chandler - Antibiotic Education chandler - Prescription Opioid Use [facility] Prescriptions: - Motrin IB 200 mg Oral Tablet - take 2 tablet by ORAL route every 6 hours As needed as needed with food; 30 chandler tablet; Refills: 0, Product Selection Permitted - Pepcid 20 mg Oral Tablet - take 1 tablet by ORAL route every 12 hours for 10 days; 20 tablet; Refills: 0, chandler Product Selection Permitted Signatures: Dispatcher [employer] Gonzales Grover MD MD cha Lewis, Lynsay RN RN ll1 Issac Aguilar RN RN ll3
[2021-10-19 10:40] VITALS: TEMP 98.5; O2SAT 100
[2021-10-19 10:47] VITALS: BP 108/77
== END 2021-10-19 10:34 | disposition home or self-care (01) ==
LOC: ER 07:24
DX: R07.9 Chest pain, unspecified (principal)
CPT/HCPCS: 36415; 71045; 71275; 80048; 80076; 81003; 81025; 83735; 84484; 85025; 85379; 93005; 93970; 99285; Q9967

== ENCOUNTER 2023-08-20 01:05 | Emergency (ER) | payer SELFPAY ==
--- OUTSIDE RECORDS SUMMARY | 2023-08-20 01:09 | XMS REPORT | Continuity of Care Document ---
:2000 Author Organization [facility] t Address [address] [facility] [address] [place] [address] Care Team Providers Name Role Phone [facility] Primary Care Physician Unavailable SANDRA DIAZ Attending Clinician Unavailable Sandra Diaz DO Attending Clinician Doctor Unassigned, [place] Attending Clinician Unavailable [facility] Attending Clinician Unavailable Kelsey Curran Attending Clinician KELSEY MORAN Attending Clinician Unavailable Nurse, [facility] Pob I Attending Clinician Unavailable Mario Mercado Attending Clinician Priti Ribera Attending Clinician PRITI GOLD Attending Clinician Unavailable PRITI GOLD Admitting Clinician Unavailable Payers Payer Name Policy Type Policy Number Effective Date Expiration Date S ource Problems Condition Condition Condition Status Onset Resolution Last Treating Co mments Source Name Details Category Date Date Treatment Clinician Date VOMITING VOMITING Diagnosis Active 2019-08-22 Memoria Active 06-05 16:16:00 l 06/05/2019 00:00: Adalberto Figueroa 00 [place] No known No known Disease Unive rs active active ity of problems problems [facility] History of Past Illness Condition Condition Condition Status Onset Resolution Last Treating Co mments Source Name Details Category Date Date Treatment Clinician Date Nausea Nausea Problem 2018-2019-06-07 2019-06-07 Memoria with with 06-05 22:18:00 22:18:00 l vomiting, vomiting, 17:00: Herm winifred unspecifie unspecifie 00 d d 06/05/2019 9 [facility] Allergies, Adverse Reactions, Alerts Allergy Allergy Status Severity Reaction(s) Onset Inactive Treating Comm ents Source Name Type Date Date Clinician NO KNOWN Drug Active Univers ALLERGIE Class ity of S [facility] Social History Social Habit Start Date Stop Date Quantity Comments Source Exposure to Not sure [facility] SARS-CoV-2 (event) [facility] Tobacco use and 2020-01-22 2020-01-22 Never used [facility] exposure 00:00:00 00:00:00 [facility] Sex Assigned At [birth year] [facility] 00:00:00 00:00:00 [facility] Smoking Status Start Date Stop Date Source Social History [facility] Unknown if ever smoked [facility] Medications Ordered Filled Start Stop Current Ordering Indication Dosage Frequency Signature Comments Components Source Medication Medication Date Date Medication? Clinician (SIG) Name Name No known 2020-10 No Univers medications 2-24 ity of 11:03: [address] No known No Univers medications 3-25 ity of 17:40: [address] Phenergan Yes 25 mg = 1 Mem oria 25 mg oral 06-05 tab, PO, l tablet 20:06: Q6H, PRN Nausea, # 12 tab, 0 Refill(s) Ondansetron No Notes: Favian cheyanne 06-05 (Same as: l 17:20: Zofran) Clark 00 MEDICATION WASTE Product Size: 4 mg Product Wasted: ___ mg Saline No Notes: Memoria Flush 0.9% 06-05 preservati l 17:20: ve free. Clark 00 Sodium No 1,000 mL, Memori a Chloride 06-05 1000 l 0.9% 17:20: ml/hr, Clark (Bolus) IV 00 Infuse Over: 1 hr, Route: IV, 1,000, Drug form: INJ, ONCE, Priority: STAT, Dosing Weight 50 kg, Start date: 06/05/19 12:20:00 CDT, Stop date: 06/05/19 12:20:00 CDT, 0 ondansetron 2019- No 4mg 4 mg, Slow Univers (ZOFRAN 06-03 08-05 IV Push, ity of (PF)) 18:30: 17:24 ONCE, 1 [place] injection 4 00 :00 dose, Mon Med ical mg 06/03/19 at Branch 1330, ALMITA acetaminoph 2019- No 650mg 650 mg, U nivers en 06-0305 Oral, ity of (TYLENOL) 18:30: 17:24 ONCE, 1 [place] tablet 650 [place] :00 dose, Mon Medi david mg 06/03/19 at Branch 1330, ALMITA ketorolac 2019- No 15mg 15 mg, Unive rs (TORADOL) 06-03 Slow IV ity of injection 17:45: 16:46 Push, [place] 15 mg 00 :00 ONCE, 1 Medical dose, [facility] 06/03/19 at 1245, Routine
[employer] member approving Restricted medication : GOLD PRITI R NaCl 0.9% 2019- No 1000mL at 999 Uni vers (NS) bolus 06-03-05 mL/hr, ity of infusion 17:15: 17:25 1,000 mL, [place] as 1,000 mL 00 :00 IV Medical Infusion, Branch ONCE, 1 dose, [facility] 06/03/19 at 1215, STAT dicyclomine 2018- Yes [id number] 10mg Take 1 Univers 10 mg 8-05 capsule by ity of capsule 00:00: mouth 4 [place] 00 (four) Medical times Branch daily. ondansetron 2018-0 Yes [id number] 4mg Take 1 Univers (ZOFRAN 8-05 tablet by ity of ODT) 4 mg 00:00: mouth [place] disintegrat 00 every 8 Medic al ing tablet (eight) Branch hours as needed for Nausea and Vomiting (N/V). dicyclomine 2019-0 Yes [id number] 10mg Take 1 Univers 10 mg 8-05 capsule by ity of capsule 00:00: mouth 4 [place] 00 (four) Medical times Branch daily. ondansetron 2019-0 Yes [id number] 4mg Take 1 Univers (ZOFRAN 8-05 tablet by ity of ODT) 4 mg 00:00: mouth [place] disintegrat 00 every 8 Medic al ing tablet (eight) Branch hours as needed for Nausea and Vomiting (N/V). dicyclomine 2019- No [id number] 10mg Take 1 Univers 10 mg 06-03 capsule by ity of capsule 00:00: 00:00 mouth 4 [place] 00 :00 (four) Medical times Branch daily. ondansetron 2019- No [id number] 4mg Take 1 Univers (ZOFRAN 06-03 tablet by ity of ODT) 4 mg 00:00: 00:00 mouth [place] disintegrat 00 :00 every 8 Medic al ing tablet (eight) Branch hours as needed for Nausea and Vomiting (N/V). No known No Univers medications [facility] Vital Signs Vital Name Observation Time Observation Value Comments Source Systolic blood 2021-10-22 16:48:00 132 mm[Hg] Univer sity [facility] [place] [facility] Diastolic blood 2021-10-22 16:48:00 81 mm[facility]Hg] [facility] 2021-10-22 16:48:00 123 /min [facility] Body temperature 2021-10-22 16:48:00 38.56 [facility] Respiratory rate 2021-10-22 16:48:00 17 /min [facility] Body height 2021-10-22 16:48:00 160 cm [facility] Body weight 2021-10-22 16:48:00 46.72 kg [facility] BMI 2021-10-22 16:48:00 18.25 kg/m2 [facility] Oxygen saturation in 2021-10-22 16:48:00 100 /min [facility] Arterial blood by [facility] Pulse oximetry Branch Systolic blood 2020-01-22 22:05:00 120 mm[Hg] Univer sity [facility] [place] [facility] Diastolic blood 2020-01-22 22:05:00 82 mm[Hg] [facility] 2020-01-22 22:05:00 99 /min [facility] Body temperature 2020-01-22 22:05:00 37.28 Zandra [facility] Respiratory rate 2020-01-22 22:05:00 16 /min [facility] Body height 2020-01-22 22:05:00 162.6 cm [facility] Body weight 2020-01-22 22:05:00 49.896 kg [facility] BMI 2020-01-22 22:05:00 18.88 kg/m2 [facility] Oxygen saturation in 2020-01-22 22:05:00 100 /min University of Arterial blood by [facility] Pulse oximetry Branch Systolic blood 2019-06-03 18:00:00 109 mm[Hg] Univer sity of pressure [facility] Diastolic blood 2019-06-03 18:00:00 81 mm[Hg] Unive rsity of pressure [facility] Heart rate 2019-06-03 18:00:00 61 /min [facility] Respiratory rate 2019-06-03 18:00:00 16 /min [facility] Oxygen saturation in 2019-06-03 18:00:00 100 /min [place] of Arterial blood by [facility] Pulse oximetry Branch Body temperature 2019-06-03 15:46:00 36.61 Zandra [facility] Body weight 2019-06-03 15:46:00 48.535 kg [facility] Systolic (mm Hg) 2019-06-05 20:44:00 Favian rial [place] Diastolic (mm Hg) 2019-06-05 20:44:00 [facility]rial [place] Heart Rate 2019-06-05 20:44:00 [facility] [place] Respitory Rate 2019-06-05 20:44:00 Memori al [place] Weight 2019-06-05 17:16:00 [facility] Clark BMI Calculated 2019-06-05 17:16:00 Memori al [place] Heart Rate 2019-06-05 17:16:00 [facility] [place] Respitory Rate 2019-06-05 17:16:00 Memori al [place] Systolic (mm Hg) 2019-06-05 17:16:00 Favian rial [place] Diastolic (mm Hg) 2019-06-05 17:16:00 [facility] orial [place] Height 2019-06-05 17:16:00 160.02 cm [facility] Temperature Oral (F) 2019-06-05 17:16:00 98.6 F [facility] Procedures Procedure Date / Time Performing Clinician Source Performed NOTICE OF PRIVACY 2021-10-22 16:41:35 Doctor Unassigned, No [facility] Name Medical Branch CONSENT/REFUSAL FOR 2021-10-22 16:41:22 Doctor Unassigned, No [facility] Name [facility] POCT FLU A AND B 2020-01-22 22:40:00 Jaquelin Jain [facility] (MOLECULAR) Medical Branch XR KUB 2019-06-03 17:23:33 Priti Gold [facility] LIPASE 2019-06-03 16:09:00 Priti Gold [facility] COMP. METABOLIC PANEL 2019-06-03 16:09:00 Priti Gold [facility] ([id number]) [facility] CBC WITH DIFFERENTIAL 2019-06-03 16:09:00 Priti Gold [facility] URINALYSIS 2019-06-03 15:51:00 Mitch Enriquez [facility] POCT TEST 2019-06-03 15:51:00 Mitch Enriquez [facility] NOTICE OF PRIVACY 2019-06-03 15:36:44 Doctor Unassigned, No [facility] CONSENT/REFUSAL FOR 2019-06-03 15:36:25 Doctor Unassigned, No [facility] Encounters Start End Encounter Admission Attending Care Care Encounter Source Date/Time Date/Time Type Type Clinicians Facility Department ID 2021-10-22 2021-10-22 Emergency X TITA DIAZ ERT [id number] Univers 10:50:00 11:32:00 SANDRA ryan [facility] [place] 2021-10-22 2021-10-22 Emergency TITA Diaz [id number] Univers 10:50:00 11:32:00 [id number] [id number] [facility] [id number] [facility] 084 Branch 2021-10-22 2021-10-22 Orders Doctor CRISTOBAL [id number] Univers 00:00:00 00:00:00 Only Unassigned, ANKITA [id number] [facility]y [facility] [place] [facility] [id number] Arm[place] as [phone] [facility] 009 [place] 2020-01-29 2020-01-29 Patient Doctor CRISTOBAL [id number] Univers 00:00:00 00:00:00 Secure Msg Unassigned, ANKITA [id number] [facility] [place] [facility] [id number] [place] as [id number] [facility] 019 [place] 2020-01-22 2020-01-22 Urgent Pob1, Acute Care Clinic [facility] [id number]. [id number] Univers 16:55:39 17:15:39 Care Kelsey Moran [facility] [id number] ity of [place] [id number] [place] as Professio [phone] [address] Office [facility] One 2020-01-22 2020-01-22 Outpatient Paige MORAN [facility] [id number] Univers 17:00:00 17:00:00 KELSEY ryan [facility] [place] 2020-01-22 2020-01-22 Telephone Nurse, [facility] [id number] Univers 00:00:00 00:00:00 Fam Pob I Health [id number] ity of [place] [id number] [place] as Professio [phone] [address] Office [facility] One 2019-06-05 2019-06-05 Emergency [facility] [id number] Memoria 16:44:00 20:46:00 [facility] [address] [facility] 2019-06-05 2019-06-[address] [facility] [id number] 11:44:00 15:46:00 R 19 2019-06-03 2019-06-03 Emergency [facility] [id number] Univers 10:52:26 13:58:00 Priti Weeks [id number] i ty [place] [id number] [facility] [phone] [facility] 084 Branch 2019-06-03 2019-06-03 Emergency [facility] [id number] Univers 10:52:26 13:58:00 PRITI ryan [facility] [place] Results Test Description Test Time Test Comments Results Result Comments Source POCT FLU A AND B (MOLECULAR) 2020-01-22 22:40:00 Test Item Value Reference Range Interpretation Comme nts POCT INFLUENZA A (test code = 3840) neg Negative - Negativ e POCT INFLUENZA B (test code = 3841) neg Negative - Negativ e Lab Interpretation (test code = 63242-9) [facility] [id number] 18:11:00 Test Item Value Reference Range Interpretation Comments Globulin (test code = Globulin) 3.8 2.7-4.2 [facility]2019-08-07 18:11:00 Test Item Value Reference Range Interpretation Comments A/G Ratio (test code = A/G Ratio) 1.0 1 0.7-1.6 [facility]2019-08-07 18:11:00 Test Item Value Reference Range Interpretation Comments B/C Ratio (test code = B/C Ratio) 19 1 6-25 [facility]2019-08-07 18:11:00 Test Item Value Reference Range Interpretation Comments AGAP (test code = AGAP) 12.0 10.0-20.0 [facility]2019-08-07 18:11:00 Test Item Value Reference Range Interpretation Comments eGFR (test code = eGFR) 135 [facility]2019-08-07 18:11:00 Test Item Value Reference Range Interpretation Comments Potassium Lvl (test code = Potassium 4.0 3.5-5.1 Lvl) [facility]2019-08-07 18:11:00 Test Item Value Reference Range Interpretation Comments Sodium Lvl (test code = Sodium Lvl) 143 135-145 [facility]2019-08-07 18:11:00 Test Item Value Reference Range Interpretation Comments Calcium Lvl (test code = Calcium Lvl) 9.2 8.5-10.5 [facility]2019-08-07 18:11:00 Test Item Value Reference Range Interpretation Comments Chloride Lvl (test code = Chloride Lvl) 106 95-109 [facility]2019-08-07 18:11:00 Test Item Value Reference Range Interpretation Comments CO2 (test code = CO2) 29 24-32 [facility]2019-08-07 18:11:00 Test Item Value Reference Range Interpretation Comments Bili Total (test code = Bili Total) 0.4 0.2-1.3 [facility]2019-08-07 18:11:00 Test Item Value Reference Range Interpretation Comments Alk Phos (test code = Alk Phos) 74 39-136 [facility]2019-08-07 18:11:00 Test Item Value Reference Range Interpretation Comments Albumin Lvl (test code = Albumin Lvl) 3.9 3.5-5.0 [facility]2019-08-07 18:11:00 Test Item Value Reference Range Interpretation Comments AST (test code = AST) 17 <=37 [facility]2019-08-07 18:11:00 Test Item Value Reference Range Interpretation Comments ALT (test code = ALT) 16 <=65 [facility]2019-08-07 18:11:00 Test Item Value Reference Range Interpretation Comments Total Protein (test code = Total 7.7 6.4-8.4 Protein) [facility]2019-08-07 18:11:00 Test Item Value Reference Range Interpretation Comments BUN (test code = BUN) 14 7-22 [facility]2019-08-07 18:11:00 Test Item Value Reference Range Interpretation Comments Glucose Lvl (test code = Glucose Lvl) 83 70-99 [facility]2019-08-07 18:11:00 Test Item Value Reference Range Interpretation Comments Creatinine Lvl (test code = Creatinine 0.74 0.50-1.40 Lvl) [facility]2019-08-07 18:11:00 Test Item Value Reference Range Interpretation Comments Lipase Lvl (test code = Lipase Lvl) 82 73-393 [facility]LbyabtyDBXBAFVAET0982-77-01 18:11:00 Test Item Value Reference Range Interpretation Comments Eosinophils (test code = Eosinophils) 1.6 <=4.0 [place] [facility]lan[id number] 18:11:00 Test Item Value Reference Range Interpretation Comments Basophils (test code = Basophils) 0.2 <=1.0 [place] [facility]lan[id number] 18:11:00 Test Item Value Reference Range Interpretation Comments Neutrophils # (test code = Neutrophils 3.4 1.5-8.1 #) [place] [facility]landsUccfgfnTWBHQJSOVU8228-28-22 18:11:00 Test Item Value Reference Range Interpretation Comments Lymphocytes # (test code = Lymphocytes 1.6 1.0-5.5 #) [place] [facility]lan[id number] 18:11:00 Test Item Value Reference Range Interpretation Comments Monocytes # (test code = Monocytes #) 0.5 <=0.8 [place] [facility]lan[id number] 18:11:00 Test Item Value Reference Range Interpretation Comments Eosinophils # (test code = Eosinophils 0.1 <=0.5 #) [place] [facility]landsCboowwwQFXHYEROFA2086-44-00 18:11:00 Test Item Value Reference Range Interpretation Comments Microcyte (test code = 2+ *ABN*(06/05/19 1:11 Microcyte) PM) [place] [facility]lan[id number] 18:11:00 Test Item Value Reference Range Interpretation Comments Segs (test code = Segs) 60.3 45.0-75.0 [place] [id number] 18:11:00 Test Item Value Reference Range Interpretation Comments Lymphocytes (test code = Lymphocytes) 29.1 20.0-40.0 [place] [id number] 18:11:00 Test Item Value Reference Range Interpretation Comments Monocytes (test code = Monocytes) 8.8 2.0-12.0 [place] [id number] 18:11:00 Test Item Value Reference Range Interpretation Comments MCHC (test code = MCHC) 32.1 32.0-36.0 [place] [id number] 18:11:00 Test Item Value Reference Range Interpretation Comments RDW (test code = RDW) 14.5 11.5-14.5 [place] [facility]lan[id number] 18:11:00 Test Item Value Reference Range Interpretation Comments MCV (test code = MCV) 71.4 80.0-98.0 [place] [facility]l[id number] 18:11:00 Test Item Value Reference Range Interpretation Comments Platelet (test code = Platelet) 295 133-450 [place] [facility]lan[id number] 18:11:00 Test Item Value Reference Range Interpretation Comments MPV (test code = MPV) 6.6 7.4-10.4 [place] [id number] 18:11:00 Test Item Value Reference Range Interpretation Comments MCH (test code = MCH) 22.9 pg 27.0-31.0 [place] [id number] 18:11:00 Test Item Value Reference Range Interpretation Comments RBC (test code = RBC) 5.58 4.20-5.40 [place] [id number] 18:11:00 Test Item Value Reference Range Interpretation Comments Hct (test code = Hct) 39.8 36.0-48.0 [place] [id number] 18:11:00 Test Item Value Reference Range Interpretation Comments Hgb (test code = Hgb) 12.8 12.0-16.0 [place] [id number] 18:11:00 Test Item Value Reference Range Interpretation Comments WBC (test code = WBC) 5.6 3.7-10.4 [facility] AND [id number] 17:39:00 Test Item Value Reference Range Interpretation Comments UA Urobilinogen (test code = UA <=1.0 mg/dL 0.1-1.0 Urobilinogen) [facility] AND [id number] 17:39:00 Test Item Value Reference Range Interpretation Comments UA RBC (test code = UA RBC) 3 <=2 [facility] AND [id number] 17:39:00 Test Item Value Reference Range Interpretation Comments UA pH (test code = UA pH) 5.0 1 5.0-8.0 [facility] AND [id number] 17:39:00 Test Item Value Reference Range Interpretation Comments UA Protein (test code = UA Negative mg/dL Protein) [facility] AND [id number] 17:39:00 Test Item Value Reference Range Interpretation Comments UA Glucose (test code = UA Negative mg/dL Glucose) [facility] AND [id number] 17:39:00 Test Item Value Reference Range Interpretation Comments UA Ketones (test code = UA Ketones) 20 mg/dL [facility] [id number] 17:39:00 Test Item Value Reference Range Interpretation Comments UA Bili (test code = Negative *NA*(06/05/19 UA Bili) 12:39 PM) [facility] [id number] 17:39:00 Test Item Value Reference Range Interpretation Comments UA Color (test code = Yellow *NA*(06/05/19 UA Color) 12:39 PM) [facility] AND [id number] 17:39:00 Test Item Value Reference Range Interpretation Comments UA Turbidity (test code Slight *ABN*(06/05/19 = UA Turbidity) 12:39 PM) [facility] AND [id number] 17:39:00 Test Item Value Reference Range Interpretation Comments UA Hyal Cast (test code = UA Hyal Cast) 3 <=2 [facility] AND [id number] 17:39:00 Test Item Value Reference Range Interpretation Comments UA Blood (test code = Negative (06/05/19 12:39 UA Blood) PM) [facility] AND [id number] 17:39:00 Test Item Value Reference Range Interpretation Comments UA Bacteria (test code = UA Occasional /HPF Bacteria) [facility] AND [id number] 17:39:00 Test Item Value Reference Range Interpretation Comments UA Mucus (test code = UA Mucus) Many /LPF [facility] AND [id number] 17:39:00 Test Item Value Reference Range Interpretation Comments UA WBC (test code = UA WBC) 3 <=5 [facility] [id number] 17:39:00 Test Item Value Reference Range Interpretation Comments UA Nitrite (test code Negative (06/05/19 12:39 = UA Nitrite) PM) [facility] [id number] 17:39:00 Test Item Value Reference Range Interpretation Comments UA Leuk Est (test Negative (06/05/19 12:39 code = UA Leuk Est) PM) [facility] AND [id number] 17:39:00 Test Item Value Reference Range Interpretation Comments UA Sq Epi (test code = UA Sq Epi) Few /LPF [facility] AND [id number] 17:39:00 Test Item Value Reference Range Interpretation Comments UA Spec Grav (test code = UA Spec 1.025 1 Grav) Carolina Thompson [id number] 17:39:00 Test Item Value Reference Range Interpretation Comments U Preg (test code = U Negative (06/05/19 12:39 Preg) PM) Carolina Rodriges [id number] 17:26:27No definite radiographic abnormality * * * * * * * * ORIGINAL REPORT * * * * * * * *EXAM: KUB HISTORY: abd pain; TECHNIQUE:A KUB radiograph is obtained. COMPARISON: 2014 FINDINGS:The bowel gas pattern is nonobstructive. No radiopaque calculi ororganomegaly is seen. No suspicious bony abnormality isnoted. A tubularstructure is seen superimposed over the midabdomen. [facility], Radiant Results Inft User - 06/03/2019 12:28 PM CDT* * * * * * * * ORIGINAL REPORT * * * * * * * *EXAM: KUBHISTORY: abd pain;BAO HNIQUE:A KUB radiograph is obtained.COMPARISON: 2014FINDINGS:The bowel gas pattern is nonobstructive. No radiopaque calculi ororganomegaly is seen. No suspicious bony abnormality is noted. A tubularstructure is seen superimposed over the midabdomen.IMPRESSIONNo definite radiographic abnormalityUnBellville Medical Center. METABOLIC PANEL ([id number])2019-06-03 16:31:00 Test Item Value Reference Range Interpretation Comments NA (test code = 143 mmol/L 135-145 [id number]) K (test code = 3.6 mmol/L 3.5-5 6123010033) CL (test code = 107 mmol/L 98-108 0569573476) CO2 TOTAL (test code = 28 mmol/L 23-31 0307704847) AGAP (test code = 2-16 7681505416) BUN (test code = 8 mg/dL 7-23 1926095171) GLUCOSE (test code = 90 mg/dL 70-110 9237478267) CREATININE (test code 0.62 mg/dL 0.5-1.04 = 3127158018) TOTAL BILI (test code 0.2 mg/dL 0.1-1.1 = 4974611647) CALCIUM (test code = 9.5 mg/dL 8.6-10.6 9618305336) T PROTEIN (test code = 7.6 g/dL 6.3-8.2 2517934261) ALBUMIN (test code = 4.4 g/dL 3.5-5 1815674273) ALK PHOS (test code = 75 U/L 34-122 9787337418) ALT(SGPT) (test code = 21 U/L 9-51 [id number]) AST(SGOT) (test code = 26 U/L 13-40 5229638897) eGFR Calculation mL/min/1.73m2 (Non-) (test code = 4793782650) eGFR Calculation mL/min/1.73m2 () (test code = 7266193611) FALGUNI (test code = FALGUNI) Association of [...] or urine or abnormalities in imaging tests). [facility] Test Item Value Reference Range Interpretation Comments LIPASE (test code = 3691763415) 54 U/L 0-220 Lab Interpretation (test code = Normal 36506-8) [facility] Test Item Value Reference Range Interpretation Comments APPEARANCE (test code = Clear Clear 2648434822) COLOR (test code = Pale Yellow Yellow A 6751944149) PH (test code = 4.8-8.0 4333754818) SP GRAVITY (test code = 1.003-1.030 5034920611) GLU U QUAL (test code = Negative Negative 5650035482) BLOOD (test code = Negative Negative 5749761865) KETONES (test code = Negative Negative 8058366119) PROTEIN (test code = Negative Negative 2887-8) UROBILIN (test code = 0.2 mg/dL See_Comment [Auto mated 3580025451) message] The sy stem which generated this result transmitted reference range : 0-1.0 mg/dL. Th e reference range was not used to interpret this result as normal/abnormal . BILIRUBIN (test code = Negative Negative 6597454140) NITRITE (test code = Negative Negative 2098223296) LEUK ELAINE (test code = Negative Negative 6978136031) RBC/HPF (test code = See_Comment [Autom ated 5922824372) message] The sy stem which generated this result transmitted reference range : 0 - 3 HPF. The reference range was not used to interpret this result as normal/abnormal . WBC/HPF (test code = See_Comment [Autom ated 4383936970) message] The sy stem which generated this result transmitted reference range : 0 - 5 HPF. The reference range was not used to interpret this result as normal/abnormal . BACTERIA (test code = Few Negative A 9959123657) SQ EPITH (test code = HPF 3506634259) Lab Interpretation Abnormal (test code = 18765-2) [facility] WITH [id number] 16:18:00 Test Item Value Reference Range Interpretation Comments WBC (test code = See_Comment [Automated 3390-2) message] The sy stem which generated this result transmitted reference range : 4.30 - 11.10 10*3/?L. The reference range was not used to interpret this result as normal/abnormal . RBC (test code = See_Comment H [Automated 539-8) message] The sy stem which generated this [...] (test code = 38.0 fL 39-49.9 L 18562-3) RDW-CV (test code = 14.6 % 12-15.5 788-0) PLT (test code = See_Comment [Automated 777-3) message] The sy stem which generated this result transmitted reference range : 166 - 358 10*3/ ?L. The reference r yair was not used to interpret this result as normal/abnormal . MPV (test code = 9.0 fL 9.5-12.9 L 09233-8) NRBC/100 WBC (test See_Comment [Automat ed code = 6404201717) message] The system which generated this result transmitted reference range : 0.0 - 10.0 /100 WBCs. The refer ence range was not u sed to interpret th is result as normal/abnormal . NRBC x10^3 (test code <0.01 See_Comment [Auto mated = 5956867845) message] The s ystem which generated this result transmitted reference range : 10*3/?L. The reference range was not used to interpret this result as normal/abnormal . GRAN MAT (NEUT) % 48.4 % (test code = 770-8) IMM GRAN % (test code 0.00 % = 3954433959) LYMPH % (test code = 31.5 % 736-9) MONO % (test code = 16.5 % 5905-5) EOS % (test code = 3.2 % 713-8) BASO % (test code = 0.4 % 706-2) GRAN MAT x10^3(ANC) 2.69 10*3/uL 1.88-7.09 (test code = 5172497954) IMM GRAN x10^3 (test <0.03 0-0.06 code = 0223625381) LYMPH x10^3 (test code 1.75 10*3/uL 1.32-3.29 = 731-0) MONO x10^3 (test code 0.92 10*3/uL 0.33-0.92 = 742-7) EOS x10^3 (test code = 0.18 10*3/uL 0.03-0.39 711-2) BASO x10^3 (test code <0.03 0.01-0.07 = 704-7) Lab Interpretation Abnormal (test code = 15381-9) [facility] [id number] 15:51:00 Test Item Value Reference Range Interpretation Comments POCT PREG (test code = 1605) negative On board controls acceptable with present C Line (test code = 3574) POCT PREG LOT # (test code = 3575) [id number] POCT PREG TEST DATE (test 10/29/2020 code = 3576) Lab Interpretation (test code = Normal 53842-7) [facility]"
[2023-08-20] MEDS ORDERED: LIDOCAINE 1% 20 ML MDV ONE (01:34)
[2023-08-20] MEDS ORDERED: DERMABOND SKIN ADHESIVE TOP ONE (01:47)
--- NOTE | 2023-08-20 04:36 | EDPHYS ---
Physician Documentation [facility] Name: Paty Morris Age: 22 yrs Sex: Female : 2000 Arrival Date: 08/20/2023 Time: 01:05 Bed 20 Private MD: ED Physician Nir Amador HPI: 08/20 01:25 This 22 yrs old Black Female presents to ER via Ambulatory with complaints of Fall ms3 Injury, Laceration To Scalp/Face. 01:25 22-year-old female with no past medical history presents for right shields laceration ms3 status post running and falling on her face 10 to 15 minutes prior to arrival. Patient states she was running when she tripped. Patient states pain is 10/10. Patient denies any alleviating or inciting factors. Patient denies headache or loss of consciousness.. 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 - Social history:: Smoking status: Patient denies any tobacco usage or history of. ROS: 01:25 Constitutional: Negative for fever, and chills. Neck: Negative for injury, pain, and ms3 swelling, Cardiovascular: Negative for chest pain, and palpitations. Respiratory: Negative for shortness of breath, cough, wheezing, and pleuritic chest pain, Abdomen/GI: Negative for abdominal pain, nausea, vomiting, diarrhea, and constipation, 01:25 Skin: Positive for laceration(s), 01:25 All other systems are negative, Exam: 01:25 Constitutional: This is a well developed, well nourished patient who is awake, alert, ms3 and in no acute distress. Head/Face: Normocephalic, atraumatic. Chest/axilla: Normal chest wall appearance and motion. Nontender with no deformity. Cardiovascular: Regular rate and rhythm with a normal S1 and S2. No gallops, murmurs, or rubs. Normal PMI, no JVD. No pulse deficits. Respiratory: Lungs have equal breath sounds bilaterally, clear to auscultation and percussion. No rales, rhonchi or wheezes noted. No increased work of breathing, no retractions or nasal flaring. Abdomen/GI: Soft, non-tender, with normal bowel sounds. No distension or tympany. No guarding or rebound. No evidence of tenderness throughout. 01:25 Skin: injury, laceration(s), the wound is approximately 3 cm(s), of the chin, Vital Signs: 01:13 Pulse 114; Resp 21; Temp 99; Pulse Ox 99% ; Weight 47.63 kg; Pain 10/10; ap3 01:15 BP 138 / 98; Pulse 114; Resp 18 S; Pulse Ox 100% on R/A; km8 01:30 BP 134 / 88; Pulse 86; Resp 18 S; Pulse Ox 100% on R/A; km8 02:08 BP 117 / 81; Pulse 70; Resp 16 S; Pulse Ox 100% on R/A; km8 03:00 BP 111 / 70; Pulse 79; Resp 16 S; Pulse Ox 100% on R/A; km8 03:30 BP 106 / 68; Pulse 76; Resp 16 S; Pulse Ox 100% on R/A; km8 04:00 BP 100 / 73; Pulse 72; Resp 16 S; Pulse Ox 100% on R/A; km8 01:13 Pain Scale: Adult ap3 Laceration: 01:51 Wound Repair of 3cm ( 1.2in ) subcutaneous laceration to chin. Distal ms3 neuro/vascular/tendon intact. Anesthesia: Local anesthetic administered with 3 mls of 1% lidocaine. Wound prep: Simple cleansing by me. Skin closed with 4 6-0 Prolene using simple sutures and sterile technique. Dressed with Bacitracin. Patient tolerated well. 01:51 Wound Repair of 2cm ( 0.8in ) subcutaneous laceration to face. Distal ms3 neuro/vascular/tendon intact. Wound prep: Simple cleansing by me. Skin closed with thin layer Adhesive skin closure using Dermabond. MDM: 01:19 Patient medically screened. ms3 04:35 Differential diagnosis: abrasion, contusion, fracture, laceration. Data reviewed: vital ms3 signs, nurses notes, radiologic studies, and as a result, I will discharge patient. I considered the following discharge prescriptions or medication management in the emergency department Medications were administered in the Emergency Department. See MAR. Care significantly affected by the following Social Determinants of Health: Poor access to healthcare and/or lack of insurance. Counseling: I had a detailed discussion with the patient and/or guardian regarding the historical points, exam findings, and any diagnostic results supporting the discharge/admit diagnosis, radiology results, the need for outpatient follow up, to return to the emergency department if symptoms worsen or persist or if there are any questions or concerns that arise at home. Special discussion: I discussed with the patient/guardian in detail that at this point there is no indication for admission to the hospital. It is understood, however, that if the symptoms persist or worsen the patient needs to return immediately for re-evaluation. ED course: Discussed mandible fracture with patient. Discussed option of transfer to [facility] for OMFS and patient declines. Patient to follow-up with Dr. Weiss in 2 to 3 days. Patient understands and agrees with plan. All questions were answered. Return precautions discussed include worsening symptoms, or any other concerns. On reevaluation patient is alert and oriented x4, no apparent distress, nontoxic-appearing, ambulatory in emergency primary, speaking full sentences, tolerating p.o.. 08/20 01:53 Order name: CT Facial Bones W/O Con ms3 08/20 01:19 Order name: Dressing - Wound; Complete Time: 01:25 ms3 08/20 01:19 Order name: Gloves, Sterile; Complete Time: : ms3 08/20 01:19 Order name: Setup Suture Tray; Complete Time: : ms3 08/20 01:33 Order name: Dermabond; Complete Time: 01:38 ms3 Administered Medications: : CANCELLED (not availl): gsknvzkfq-icujfamtyoj-0%: (1:100,000) 10 ml 20 ml Infiltration ap3 once; to bedside 01:46 Drug: Lidocaine Infiltration (1 %) 10 ml 20 ml Infiltration once; to bedside {Note: km8 given by Dr. Amador .} Volume: 20 ml; Route: Infiltration; Disposition Summary: 08/20/23 04:35 Discharge Ordered Notes: Location: Home ms3 Condition: Stable ms3 Diagnosis - Fracture of mandible ms3 - Chin laceration ms3 Followup: ms3 - With: Dylan Calixto DDS - When: 2 - 3 days - Reason: Recheck today's complaints Discharge Instructions: - Discharge Summary Sheet ms3 - Tissue Adhesive Wound Care ms3 - Mandibular Fracture ms3 - Facial Laceration, Uqmq-gs-Srpi ms3 - Mandibular Fracture, Uvtu-lb-Jjuj ms3 Forms: - Work release form hb - Medication Reconciliation Form ms3 - Thank You Letter ms3 - Antibiotic Education ms3 - Prescription Opioid Use ms3 - Patient Portal Instructions ms3 - Leadership Thank You Letter ms3 Prescriptions: - Clindamycin HCl 150 mg Oral Capsule - take 1 capsule ORAL route every 6 hours for 10 days; 40 capsule; Refills: 0, ms3 Product Selection Permitted - Ibuprofen 600 mg Oral Tablet - take 1 tablet ORAL route every 6 hours As needed take with food; 30 tablet; ms3 Refills: 0, Product Selection Permitted Signatures: Dispatcher [employer] Trice Prescott RN RN ap3 Nir Amador DO DO ms3 Sushma Rosenberg, RN RN km8 Corrections: (The following items were deleted from the chart) 01:22 01:19 Lidocaine-Epinephrine Infiltration -1%: (1:100,000) 10 ml 20 ml Infiltration ap3 once; to bedside ordered. ms3
--- NOTE | 2023-08-20 04:36 | ER ---
Nurse's Notes [facility] Name: Paty Morris Age: 22 yrs Sex: Female : 2000 Arrival Date: 08/20/2023 Time: 01:05 Bed 20 Private MD: Diagnosis: Fracture of mandible;Chin laceration Presentation: 08/20 01:13 Chief complaint: Patient states: she was running with her friends, and she fell hitting ap3 her face. patient presents to the ED with a laceration to her chin. patient reports pain to be a 10/10 at this time. Coronavirus screen: At this time, the client does not indicate any symptoms associated with coronavirus-19. Ebola Screen: No symptoms or risks identified at this time. Initial Sepsis Screen: Does the patient meet any 2 criteria? No. Patient's initial sepsis screen is negative. Does the patient have a suspected source of infection? No. Patient's initial sepsis screen is negative. Risk Assessment: Do you want to hurt yourself or someone else? Patient reports no desire to harm self or others. Onset of symptoms was August 20, 2023. 01:13 Method Of Arrival: Ambulatory ap3 01:13 Acuity: ELPIDIO 4 ap3 Triage Assessment: 01:15 General: Appears uncomfortable, Behavior is anxious. Pain: Complains of pain in chin ap3 Pain currently is 10 out of 10 on a pain scale. Derm: Wound noted. 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 - Social history:: Smoking status: Patient denies any tobacco usage or history of. Screenin:15 Abuse screen: Denies threats or abuse. Nutritional screening: No deficits noted. ap3 Tuberculosis screening: No symptoms or risk factors identified. 01:20 [facility] ED Fall Risk Assessment (Adult) History of falling in the last 3 months, km8 including since admission Yes- single mechanical fall (1 pt) Confusion or Disorientation No (0 pts) Intoxicated or Sedated No (0 pts) Impaired Gait No (0 pts) Mobility Assist Device Used No (0 pt) Altered Elimination No (0 pt) Score/Fall Risk Level 0 - 2 = Low Risk Oriented to surroundings, Maintained a safe environment, Educated pt \T\ family on fall prevention, incl call for assistance when getting out of bed, Assessed \T\ reinforced patient's understanding of fall precautions. Assessment: 01:20 General: Appears uncomfortable, Behavior is anxious. Pain: Complains of pain in face km8 and chin Pain currently is 10 out of 10 on a pain scale. Neuro: No deficits noted. Hawthorne Agitation-Sedation Scale (RASS): 0 - Alert and Calm Level of Consciousness is awake, alert, obeys commands, Oriented to person, place, time, situation. Cardiovascular: No deficits noted. Denies chest pain, shortness of breath, Capillary refill < 3 seconds Patient's skin is warm and dry. Respiratory: No deficits noted. Airway is patent Respiratory effort is even, unlabored, Respiratory pattern is regular, symmetrical. GI: No deficits noted. No signs and/or symptoms were reported involving the gastrointestinal system. : No deficits noted. No signs and/or symptoms were reported regarding the genitourinary system. EENT: No deficits noted. No signs and/or symptoms were reported regarding the EENT system. Derm: Skin is intact, is healthy with good turgor, Skin is dry, Skin is normal, Skin temperature is warm Wound noted chin Wound is laceration. Musculoskeletal: No deficits noted. No signs and/or symptoms reported regarding the musculoskeletal system. Circulation, motion, and sensation intact. Range of motion: intact in all extremities. Injury Description: Laceration sustained to chin. Vital Signs: 01:13 Pulse 114; Resp 21; Temp 99; Pulse Ox 99% ; Weight 47.63 kg; Pain 10/10; ap3 01:15 BP 138 / 98; Pulse 114; Resp 18 S; Pulse Ox 100% on R/A; km8 01:30 BP 134 / 88; Pulse 86; Resp 18 S; Pulse Ox 100% on R/A; km8 02:08 BP 117 / 81; Pulse 70; Resp 16 S; Pulse Ox 100% on R/A; km8 03:00 BP 111 / 70; Pulse 79; Resp 16 S; Pulse Ox 100% on R/A; km8 03:30 BP 106 / 68; Pulse 76; Resp 16 S; Pulse Ox 100% on R/A; km8 04:00 BP 100 / 73; Pulse 72; Resp 16 S; Pulse Ox 100% on R/A; km8 01:13 Pain Scale: Adult ap3 ED Course: 01:09 Patient arrived in ED. ag3 01:11 Nir Amador DO is Attending Physician. ms3 01:14 Triage completed. ap3 01:15 Arm band placed on left wrist. ap3 01:20 Sushma Rosenberg, RN is Primary Nurse. km8 01:20 Patient has correct armband on for positive identification. Bed in low position. Call km8 light in reach. Side rails up X 1. Client placed on continuous cardiac and pulse oximetry monitoring. NIBP monitoring applied. 02:17 CT Facial Bones W/O Con In Process Unspecified. EDMS 04:35 Dylan Calixto DDS is Referral Physician. ms3 04:48 No provider procedures requiring assistance completed. Patient did not have IV access km8 during this emergency room visit. 05:00 Provided Education on: discharge instructions. . nw1 Administered Medications: 01:22 CANCELLED (not availl): opmgdngpf-xryakykgonr-8%: (1:100,000) 10 ml 20 ml Infiltration ap3 once; to bedside 01:46 Drug: Lidocaine Infiltration (1 %) 10 ml 20 ml Infiltration once; to bedside {Note: km8 given by Dr. Amador .} Volume: 20 ml; Route: Infiltration; Medication: 04:50 VIS not applicable for this client. km8 Outcome: 04:35 Discharge ordered by MD. ms3 04:57 Discharged to home ambulatory, nw1 04:57 Condition: stable 04:57 Discharge instructions given to patient, Instructed on discharge instructions, follow up and referral plans. Demonstrated understanding of instructions, follow-up care, medications, Prescriptions given X 2, 05:01 Patient left the ED. nw1 Signatures: Dispatcher [employer] EDMA Trice Medley RN FAIZA ap3 Cassie Martin ag3 Nir Amador DO DO ms3 Sushma Rosenberg, FAIZA KENDALL km8 Tracee Thompson RN RN nw1
--- NOTE | 2023-08-21 10:07 | RAD REPORT ---
EXAM DESCRIPTION: CT - Facial Bones W/ Mpr - 08/20/2023 6:54 am CLINICAL HISTORY: The patient is 22 years old and is Female; TRAUMA TECHNIQUE: Axial computed tomography images of the face without intravenous contrast. Sagittal and coronal reformatted images were created and reviewed. This CT exam was performed using one or more of the following dose reduction techniques: automated exposure control, adjustment of the mA and/o r kV according to patient size, and/or use of iterative reconstruction technique. COMPARISON: No relevant prior studies available. FINDINGS: Bones/joints: Nondisplaced fracture through the angle of the left mandible. Soft tissues: Unremarkable. Orbits: Unremarkable. Sinuses: Unremarkable. No air-fluid levels. IMPRESSION: Nondisplaced fracture through the angle of the left mandible. Electronically signed by: Gilbert Jacob MD 08/20/2023 3:51 AM CDT Due to temporary technical issues with the PACS/Fluency reporting system, reports are being signed by the in house radiologist without review as a courtesy to ensure prompt reporting. The interpreting r adiologist is fully responsible for the content of the report.
== END 2023-08-20 05:01 | disposition home or self-care (01) ==
LOC: ER 01:05
PROC: 0HQ1XZZ Repair Face Skin, External Approach (ICD-10-PCS; principal; 2023-08-20)
DX: S02.652A Fracture of angle of left mandible, initial encounter for closed fracture (principal); S01.81XA Laceration without foreign body of other part of head, initial encounter
CPT/HCPCS: 70486; 76377; 99284; J2001